=== PATIENT | female | born 1975 | race Two or more races ===

== ENCOUNTER → 2023-09-23 | Outpatient (BNVA) | payer MEDICAID, SELFPAY | END | disposition home or self-care (01) | PROVIDERS: PCP Nurse Practitioner Family; Referring Provider Nurse Practitioner Family; Visit Provider Nurse Practitioner Family | DX: S91.209A Unspecified open wound of unspecified toe(s) with damage to nail, initial encounter (principal); L60.0 Ingrowing nail | CPT/HCPCS: 11730; 99215; J3490 ==

== ENCOUNTER → 2024-02-12 | Outpatient (CLI) | payer MEDICAID, SELFPAY ==
--- NOTE | 2024-02-12 14:00 | ECHO_ITS ---
Transthoracic Echo Report Ht (in): 63 Wt (lb): 184 Exam Location: Echo Lab Status: Preadmit Certified Lactation Educator: Lori Melvin Indications: Procedure Performed: BP: / HR: Rhythm: Sinus Technical Quality: Fair MEASUREMENTS (Male / Female) Normal Values 2D ECHO LV Diastolic Diameter PLAX 4.6 cm 4.2 - 5.9 / 3.9 - 5.3 cm LV Systolic Diameter PLAX 3.3 cm IVS Diastolic Thickness 0.9 cm 0.6 - 1.0 / 0.6 - 0.9 cm LVPW Diastolic Thickness 0.8 cm 0.6 - 1.0 / 0.6 - 0.9 cm LV Relative Wall Thickness 0.4 LVOT Diameter 1.8 cm LA Volume Index 17.2 cm?/m? 16 - 28 cm?/m? Ascending Aorta Diameter 2.8 cm M-MODE Aortic Root Diameter MM 2.8 cm LA Systolic Diameter MM 3.5 cm LA Ao Ratio MM 1.3 AV Cusp Separation MM 1.9 cm DOPPLER AV Peak Velocity 142.0 cm/s AV Peak Gradient 8.1 mmHg AV Mean Gradient 4.0 mmHg AV Velocity Time Integral 28.4 cm LVOT Peak Velocity 109.0 cm/s LVOT Peak Gradient 4.8 mmHg LVOT Velocity Time Integral 22.1 cm AV Area Cont Eq vti 2.0 cm? AV Area Cont Eq pk 2.0 cm? MV Peak Velocity 93.3 cm/s MV Peak Gradient 3.5 mmHg MV Mean Velocity 62.3 cm/s MV Mean Gradient 2.0 mmHg MV Area PHT 4.0 cm? Mitral E Point Velocity 66.0 cm/s Mitral A Point Velocity 83.4 cm/s Mitral E to A Ratio 0.8 LV E' Lateral Velocity 11.4 cm/s Mitral E to LV E' Lateral Ratio 5.8 LV E' Septal Velocity 8.3 cm/s Mitral E to LV E' Septal Ratio 8.0 FINDINGS Left Ventricle Normal left ventricular size, wall thickness, systolic function with no obvious regional wall motion abnormalities. The ejection fraction is visually estimated at 55-60%. Right Ventricle The right ventricle is normal in size and systolic function. Left Atrium The left atrium is normal by two-dimensional, color flow and Doppler imaging with no structural abnormalities, no thrombus formation present. Right Atrium The right atrium is normal by two-dimensional imaging, color flow and Doppler imaging with no struct ural abnormalities, no thrombus formation present. Atrial Septum The interatrial septum appears normal with no evidence of a shunt. Aorta The aorta is normal by two-dimensional, color flow and Doppler interrogation. Mitral Valve The mitral valve is normal by two-dimensional, color flow and Doppler interrogation. There is trace mitral valve regurgitation. Aortic Valve The aortic valve is trileaflet and normal by two-dimensional, color flow and Doppler interrogation. There is trace aortic valve regurgitation. Tricuspid Valve The tricuspid valve is normal by two-dimensional, color flow and Doppler interrogation. There is tra ce tricuspid valve regurgitation. Pulmonic Valve There is no significant pulmonic valve regurgitation. Vessels The pulmonary artery appears normal. The inferior vena cava pulmonary and hepatic veins appear dahiana l. Pericardium The pericardium is normal by two-dimensional imaging. There is no significant pericardial effusion. CONCLUSIONS Normal LV size and function. Estimated EF 55-60% Normal RV size and function. Trace mitral and trace tricuspid regurgitation Rayne Ross (Electronically Signed) Final Date: 12 February 2024 20:24
== END | disposition home or self-care (01) ==
LOC: SDIM 14:08
PROVIDERS: PCP Nurse Practitioner Family; Referring Provider Internal Medicine Hematology & Oncology; Visit Provider Internal Medicine Hematology & Oncology
DX: I08.1 Rheumatic disorders of both mitral and tricuspid valves (principal); C50.011 Malignant neoplasm of nipple and areola, right female breast
CPT/HCPCS: 93306

== ENCOUNTER 2024-05-19 12:55 | Outpatient (RCR) | payer MEDICAID, SELFPAY ==
[2024-05-18 15:49] LABS: Basophils # (Auto) 0.1 Thou/mm3 (0.0-0.2); Basophils % (Auto) 1 % (0-2.5); Eosinophils # (Auto) 0.1 Thou/mm3 (0.0-0.5); Eosinophils % (Auto) 2 % (0-10); Hematocrit 37.1 % (36.0-46.0); Hemoglobin 13.4 g/dL (12.0-16.0); Immature Granulocytes % (Auto) 0 % (0-0); Immature Granulocytes Auto 0.02 Thou/mm3 (0.00-0.00); Lymphocytes # (Auto) 1.2 Thou/mm3 (1.0-4.8); Lymphocytes % (Auto) 21 % (10-50); Mean Corpuscular HGB Conc 36.1 g/dl (31.0-37.0); Mean Corpuscular Hemoglobin 32.1 pg (25.0-35.0); Mean Corpuscular Volume 89 fL (80-100); Monocytes # (Auto) 0.4 Thou/mm3 (0.0-0.8); Monocytes % (Auto) 7 % (0-12); Neutrophils # (Auto) 4.1 Thou/mm3 (1.8-7.7); Neutrophils % (Auto) 69 % (37-80); Nucleated Red Blood Cell % 0 /100 WBC (0); Platelet Count 241 Thou/mm3 (140-440); RDW Standard Deviation 39.2 fL (36.4-46.3); Red Blood Count 4.18 Miln/mm3 (4.00-5.20); White Blood Count 5.9 Thou/mm3 (3.6-11.0)
[2024-05-18 16:10] LABS: Alanine Aminotransferase 258 U/L (10-49); Albumin, Serum 4.1 gm/dL (3.5-5.0); Albumin/Globulin Ratio 1.5 (1.2-2.2); Alkaline Phosphatase 89 U/L (46-116); Anion Gap 5 (7-16); Aspartate Amino Transferase 180 U/L (0-34); BUN/Creatinine Ratio 17 Ratio (12-20); Bilirubin,Total 1.1 mg/dL (0.3-1.2); Blood Urea Nitrogen 12 mg/dL (9-23); Calcium 9.6 mg/dL (8.3-10.6); Calcium (Corrected) 9.6 mg/dL (8.5-10.1); Carbon Dioxide 27.6 mMol/L (20.0-31.0); Chloride 106 mMol/L (98-107); Creatinine (Component) 0.7 mg/dL (0.6-1.3); Globulin 2.8 gm/dL (2.3-3.5); Glucose 129 mg/dL (74-106); Osmolality,Calculated 279 (275-295); Potassium 3.6 mMol/L (3.4-5.1); Sodium 139 mMol/L (136-145); Total Protein 6.9 gm/dL (5.7-8.2); eGFR > 60 See Note
--- NOTE | 2024-05-20 00:51 | CTCFLWUP_ITS ---
Patient: DOMINGA GARCIA : 1975 Page 8 of 8 FOLLOW UP NOTE DATE OF SERVICE: 05/19/2024 NAME: DOMINGA GRACIA ACCOUNT: [id number] : 1975 AGE: 48 INTERVAL HISTORY: Alesha, a patient with a history of cancer, presents with elevated liver enzymes and multiple pain complaints. The patient reports strong pain under the left ribs, bone pain, and pain near the ovary. The patient denies any recent medication changes or alcohol use. The patient describes the pain as being primarily on the left side, with bone pain all over, mostly in the joints. The patient does not report any burning sensation when urinating. The pain's onset, duration, and severity are not specified. The patient mentions that the bone pain could be from the cancer pill they are taking. The patient's liver enzymes have been elevated since November 2023, with a significant increase noted during this visit. The patient denies starting any new supplements or vitamins, stating they are only taking their cancer pill. The patient reports weight gain but does not specify the amount or timeframe. Regarding treatment adherence, the patient continues to take their prescribed cancer medication and hormone-blocking medicine. They inquire about refilling their cancer pill prescription at the pharmacy. Medical History - Cancer (unspecified type) - Diabetes - Elevated liver enzymes since November 2023 Medications and Supplements - Cancer pill (hormone-blocking medicine) - Possibly causing bone pain, mostly in the joints - Tylenol - Advised to avoid - Aleve - Advised to avoid Social History - Substance Use: Denies alcohol use - Diet: Patient reports weight gain Review of Systems General: Positive for weight gain. Gastrointestinal: Positive for left-sided pain under ribs. Genitourinary: Negative for burning sensation when urinating. Musculoskeletal: Positive for bone pain, joint pain. Other: Positive for pain near ovary. 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 S/p ultrasound-guided biopsy of the right breast lesion (01/16/2022) S/p 6 cycles of neoadjuvant TCH chemotherapy since 03/21/2022 - 07/11/2022). S/p lumpectomy and sentinel lymph node biopsy (09/20/2022). Patient had complete pathological response BRCA 1and2 negative. Started on adjuvant tamoxifen on 10/21/2022 Completed a total of 1 year of adjuvant Herceptin on 08/07/2023 last menstrual cycle March 2022. REASON FOR TODAY?S VISIT: This is office follow-up visit. Ms. Garcia is here at [facility]. She complains of new onset pain in the lower part of the right breast for last few weeks. She denies any nipple discharge. Denies any other complaints. Denies any cough, chest pain, abdominal pain or leg cramps. Patient states that she is having memory problems. She completed a total of 1 year of Herceptin on 08/07/2023. Malignant neoplasm of nipple and areola, right female breast [ICD10] C50.011 DATE OF DIAGNOSIS: STAGE/TNM: TREATMENT HISTORY: Care?Plan Start?Date Cycle Day Intent TCH?1 02/03/2022 1 21 Curative?(primary) VENOfer?200mg?IV?wkly?for?10?weeks 03/25/2022 1 70 Palliative Trastuzumab?6?mg/kg? To?Finish?the?Year 11/11/2022 1 21 Curative?(adjuvant) Trastuzumab?6?mg/kg? To?Finish?the?Year 02/17/2023 1 21 Curative?(adjuvant) HISTORY OF PRESENT ILLNESS: Dominga Garcia is a 48-year-old SPA speaking female without any significant past medical history has the following oncology history. September 2021: Ms. Garcia started feeling a lump in the right breast as well as in the right breast. 11/14/2021: Right breast diagnostic mammogram and ultrasound? 01/16/2022: Ultrasound-guided right breast biopsy? 02/18/2022: BRCA1 and BRCA2 analysis?negative 02/27/2022: MRI of the brain with and without contrast? 04/09/2022: PET/CT scan? 03/21/2022?07/11/2022: Patient was treated with 6 cycles of neoadjuvant TCH chemotherapy. 08/28/2022: MRI of the breast? 09/20/2022: Ms. Garcia had right breast lumpectomy and sentinel lymph node biopsy. 11/13/2022 - 01/07/2023: Ms. Garcia had 6300 cGy radiation therapy to the right breast, regional node sites including right supra clavicle as well as right apex region of the lung. 01/29/2023: Echocardiogram?LVEF 55-60%. 02/05/2023: CT scan of the chest and abdomen with IV contrast? OTHER MEDICAL HISTORY/CONDITIONS: Right?breast?cancer?-?2021 Cholecystectomy - 13 yrs ago Tubal ligation - 13 yrs ago FAMILY HISTORY: Cancer History:?Mat cousins x 2 - breast - dx age 34 and 52 SOCIAL HISTORY: Occupational?History:?[employer] Education?Level:?Completed High School Marital?Status:? Tobacco?Use:?Denies ETOH?Use:?Denies Drug?Note:?Denies Social History Note:?Lives with children [employer] HISTORY: Menarche?-?Age:?14 Date?LMP:?01/17/2022 :?4 Live?Births:?4 Age?1st?:?18 MEDICATIONS: 1. anastrozole - 1 mg 1 tab Daily 2. Arimidex - 1 mg 1 tab Daily Medications Last Reconciled by Zenobia Duggan MA on 05/19/2024 ALLERGIES: No Known Drug Allergies REVIEW OF SYSTEMS: A complete 14-point review of systems was performed and is negative except as noted in interval history. PHYSICAL EXAMINATION: VITAL SIGNS: Temperature?98.4, B/P?129/82, Oxygen?Saturation?97% Weight?196?lbs (Change?since?05/18/24:?3.4?lbs) PAIN: 2 - Mild pain ECOG Performance Status: 0 - Asymptomatic and fully active EYE: Conjunctivae is white MOUTH: Oral cavity is dry. No masses palpable in the right breast CHEST: Clear to auscultation. No wheezes or rales audible. No masses palpable CARDIAC: Rhythm regular, no murmurs or gallops present. ABDOMEN: Soft. No hepatomegaly. No splenomegaly. EXTREMITIES: No pedal edema or cyanosis. Physical Examination Abdomen: Pain noted under the left ribs. No hepatomegaly appreciated on palpation. Musculoskeletal: Pain reported in bones and joints. Laboratory, Imaging, and Diagnostic Test Results - Liver enzymes: - Elevated since November 2023 - Current results: Significantly higher than previous - Last imaging scan (November 2023): Negative LABORATORY DATA: I have personally reviewed and interpreted each of the patient?s relevant lab tests, abnormal findings are below: Date 11/11/23 05/18/24 ??WHITE?BLOOD?COUNT?(Thou/mm3) 5.1 5.9 ??RED?BLOOD?COUNT?(Miln/mm3) 3.74?L 4.18 ??HEMOGLOBIN?(gm/dl) 11.9?L 13.4 ??HEMATOCRIT?(%) 33.9?L 37.1 ??PLATELET?COUNT?(Thou/mm3) 222 241 ??NEUTROPHILS?%,?AUTO?(%) 65 69 ??LYMPH?%,?AUTO?(%) 25 21 ??NEUTROPHILS,?AUTO?(Thou/mm3) 3.3 4.1 ??GLUCOSE,RANDOM?(mg/dL) 110?H 129?H ??BLOOD?UREA?NITROGEN?(mg/dL) 17 12 ??CREATININE?(mg/dL) 0.70 0.70 ??SODIUM?(mmol/L) 141 139 ??POTASSIUM?(mmol/L) 3.7 3.6 ??CHLORIDE?(mmol/L) 108?H 106 ??CrCl?(CandG)?(ml/min) 105.77 108.47 ??AST/SGOT?(Unit/L) 55?H 180?H ??ALT/SGPT?(Unit/L) 64?H 258?H ??ALKALINE?PHOSPHATASE?(Unit/L) 94 89 ??BILIRUBIN,?TOTAL?(mg/dL) 0.5 1.1 ??PROTEIN?TOTAL?(gm/dl) 6.8 6.9 ??ALBUMIN,?SERUM?(gm/dl) 4.3 4.1 ??GLOBULIN?(gm/dl) 2.5 2.8 ??ALBUMIN/GLOBULIN?RATIO 1.7 1.5 ??CALCIUM,?SERUM?(mg/dL) 9.7 9.6 ??CALCIUM?SERUM?(CORRECTED)?(mg/dL) 9.7 9.6 ASSESSMENT/PLAN: Alesha presents with elevated liver enzymes, pain under left ribs, bone pain, and pain near ovary. Patient has a history of cancer and is on hormone- blocking medication. Elevated liver enzymes Assessment: Patient's liver enzymes have been elevated since November 2023, with a significant increase noted today. Alcohol consumption and recent medication changes have been ruled out. Potential causes include hyperglycemia, hepatic steatosis, or mild infection. Cancer recurrence is also a consideration. Further investigation is warranted to determine the etiology. Plan: - Repeat comprehensive metabolic panel - Order CT scan of chest, abdomen, and pelvis with contrast - Order minimal residual disease testing via blood - Order hepatitis panel - Discontinue all vitamins and supplements for 1-2 weeks, then repeat blood work - Continue cancer medication (hormone-blocking therapy) - Avoid acetaminophen and naproxen - Follow up in 4 weeks Left-sided rib pain, bone pain, and ovarian pain Assessment: Patient reports pain under the left ribs, generalized bone pain (predominantly in joints), and pain near the ovary. The bone pain may be a side effect of the cancer medication. The left-sided rib pain is less concerning for hepatic involvement given the liver's anatomical location. Ovarian pain requires further evaluation. Plan: - CT scan of chest, abdomen, and pelvis with contrast (as mentioned above) - Check tumor markers - Increase fluid intake - Continue hormone-blocking medication - Follow up in 4 weeks Weight gain Assessment: Patient reports significant weight gain, which may contribute to hepatic steatosis and elevated liver enzymes. Plan: - Recommend weight loss - Encourage increased water intake Diabetes management Assessment: Patient has a history of diabetes, which may be contributing to elevated liver enzymes. Current glycemic control is unknown. Plan: - Check diabetes-related laboratory values (likely HbA1c and fasting glucose) ORDERS: Order # Description [id number] CA [id number] [id number] Chest + Abdomen and Pelvis + With W/O Contrast + CT Scan [id number] Comprehensive Metabolic Panel - 12 + CBC with Auto Diff [id number] Hep A, B and C panel [id number] MD Follow Up 4 Week [id number] AFP RETURN TO CLINIC: 4 weeks instructions Dear Alesha, Thank you for visiting today. 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 Best Regards, deena bullock, Oncology BILLING AND COMPLIANCE: I reviewed external records from providers outside my specialty as summarized above. I spent a total of 50 minutes on this patient?s care on the day of their visit excluding time spent related to any billed procedures. This time includes time spent with the patient as well as time spent documenting in the medical record, reviewing patients records and tests, obtaining history, placing orders, communicating with other healthcare professionals, counseling the patient, family or caregiver, and/or care coordination for the diagnoses above. Electronically Signed by: {Object.Sanct_ID*[email or web address]@M}, {Object.Sanct_ID*[email or web address]@U} D: {Object.Sanct_Date} T: {Object.Sanct_Time} CC: PCP: [facility] Mellisa Mcclendon Referring: [facility] Mellisa Mcclendon This document was completed utilizing speech recognition software. Grammatical errors, random word insertions, pronoun errors, and incomplete sentences are an occasional consequence of this system due to software limitations, ambient noise, and hardware issues. Any formal questions or concerns about the content, text or information contained within the body of this dictation should be directly addressed to the provider for clarification.
== END 2024-06-09 23:59 | disposition home or self-care (01) ==
LOC: SCTC 12:55
PROVIDERS: PCP Nurse Practitioner Family; Referring Provider Nurse Practitioner Family; Visit Provider Internal Medicine Hematology & Oncology
DX: C50.511 Malignant neoplasm of lower-outer quadrant of right female breast (principal); Z17.0 Estrogen receptor positive status [ER+]; Z17.22 Progesterone receptor negative status; Z17.32 Human epidermal growth factor receptor 2 negative status; Z79.811 Long term (current) use of aromatase inhibitors; R74.8 Abnormal levels of other serum enzymes; R07.81 Pleurodynia; M89.8X9 Other specified disorders of bone, unspecified site; N94.89 Other specified conditions associated with female genital organs and menstrual cycle; R63.5 Abnormal weight gain; Z68.33 Body mass index [BMI] 33.0-33.9, adult; E11.9 Type 2 diabetes mellitus without complications; Z90.11 Acquired absence of right breast and nipple
CPT/HCPCS: 36415; 80053; 85025; 99213; G0463

== ENCOUNTER → 2024-05-21 | Outpatient (CLI) | payer MEDICAID, SELFPAY ==
--- NOTE | 2024-05-21 14:00 | ECHO_ITS ---
Transthoracic Echo Report Ht (in): 63 Wt (lb): 196 Exam Location: Echo Lab Status: Preadmit Cue Selector: GLADIS Foley^^^^ Indications: Procedure Performed: BP: 128 / 74 HR: 77 Technical Quality: Fair MEASUREMENTS (Male / Female) Normal Values 2D ECHO LV Diastolic Diameter PLAX 4.9 cm 4.2 - 5.9 / 3.9 - 5.3 cm LV Systolic Diameter PLAX 2.8 cm IVS Diastolic Thickness 0.6 cm 0.6 - 1.0 / 0.6 - 0.9 cm LVPW Diastolic Thickness 0.7 cm 0.6 - 1.0 / 0.6 - 0.9 cm LV Relative Wall Thickness 0.3 LVOT Diameter 1.5 cm Aortic Root Diameter 2.9 cm LA Systolic Diameter LX 2.6 cm 3.0 - 4.0 / 2.7 - 3.8 cm LA Volume Index 18.8 cm?/m? 16 - 28 cm?/m? Ascending Aorta Diameter 2.4 cm DOPPLER AV Peak Velocity 152.0 cm/s AV Peak Gradient 9.2 mmHg AV Mean Gradient 6.0 mmHg AV Velocity Time Integral 34.7 cm LVOT Peak Velocity 127.0 cm/s LVOT Peak Gradient 6.5 mmHg LVOT Velocity Time Integral 27.3 cm LVOT Cardiac Index 1832.7 cm?/min?m? AV Area Cont Eq vti 1.4 cm? AV Area Cont Eq pk 1.5 cm? MV Area PHT 4.5 cm? Mitral E Point Velocity 86.6 cm/s Mitral A Point Velocity 79.7 cm/s Mitral E to A Ratio 1.1 LV E' Lateral Velocity 9.4 cm/s Mitral E to LV E' Lateral Ratio 9.2 LV E' Septal Velocity 10.8 cm/s Mitral E to LV E' Septal Ratio 8.0 TR Peak Velocity 202.0 cm/s TR Peak Gradient 16.3 mmHg PV Peak Velocity 122.0 cm/s PV Peak Gradient 6.0 mmHg RVOT Peak Velocity 90.2 cm/s FINDINGS Left Ventricle Normal left ventricular size, wall thickness, systolic function with no obvious regional wall motion abnormalities. Normal left ventricular diastolic filling pattern for age. The ejection fraction is visually estimated at 60-65 %. Right Ventricle The right ventricle is normal in size and systolic function. The estimated right ventricular systolic pressure, 18 mmHg. Left Atrium The left atrium is normal by two-dimensional, color flow and Doppler imaging with no structural abnormalities, no thrombus formation present. Right Atrium The right atrium is normal by two-dimensional imaging, color flow and Doppler imaging with no structural abnormalities, no thrombus formation present. Atrial Septum The interatrial septum appears normal with no evidence of a shunt. Aorta The aorta is normal by two-dimensional, color flow and Doppler interrogation. Mitral Valve Trace to mild mitral regurgitation. Aortic Valve The aortic valve is trileaflet and normal by two-dimensional, color flow and Doppler interrogation. There is no significant aortic valve regurgitation. Tricuspid Valve There is mild tricuspid valve regurgitation. Pulmonic Valve Trivial pulmonic valve regurgitation. Vessels The pulmonary artery appears normal. The inferior vena cava pulmonary and hepatic veins appear normal. Pericardium The pericardium is normal by two-dimensional imaging. There is no significant pericardial effusion. CONCLUSIONS indication: Cancer Normal-sized cardiac chambers Normal-sized left ventricle with excellent LV systolic function ejection fraction 65 to 70% Trace to mild tricuspid mitral regurgitation insignificant. Rayne Ross (Electronically Signed) Final Date: 21 May 2024 16:59
== END | disposition home or self-care (01) ==
LOC: SDIM 13:54
PROVIDERS: PCP Nurse Practitioner Family; Referring Provider Internal Medicine Hematology & Oncology; Visit Provider Internal Medicine Hematology & Oncology
DX: I08.1 Rheumatic disorders of both mitral and tricuspid valves (principal); C50.011 Malignant neoplasm of nipple and areola, right female breast
CPT/HCPCS: 93306

== ENCOUNTER → 2024-06-03 | Outpatient (BNVA) | payer MEDICAID, SELFPAY | END | disposition home or self-care (01) | PROVIDERS: PCP Nurse Practitioner Family; Referring Provider Nurse Practitioner Family; Visit Provider Nurse Practitioner Family | DX: F32.1 Major depressive disorder, single episode, moderate (principal); F41.9 Anxiety disorder, unspecified; Z12.4 Encounter for screening for malignant neoplasm of cervix; R10.2 Pelvic and perineal pain | CPT/HCPCS: 99215; Q0091 ==

== ENCOUNTER → 2024-06-17 | Outpatient (BNVA) | payer MEDICAID, SELFPAY | END | disposition home or self-care (01) | PROVIDERS: PCP Nurse Practitioner Family; Referring Provider Nurse Practitioner Family; Visit Provider Nurse Practitioner Family | DX: R87.810 Cervical high risk human papillomavirus (HPV) DNA test positive (principal) | CPT/HCPCS: 99214 ==

== ENCOUNTER 2024-06-22 10:34 | Outpatient (RCR) | payer MEDICAID, SELFPAY ==
[2024-06-16 09:19] LABS: Basophils % (Auto) 1 % (0-2.5); Eosinophils # (Auto) 0.2 Thou/mm3 (0.0-0.5); Eosinophils % (Auto) 4 % (0-10); Hematocrit 35.5 % (36.0-46.0); Hemoglobin 12.7 g/dL (12.0-16.0); Immature Granulocytes % (Auto) 0 % (0-0); Immature Granulocytes Auto 0.01 Thou/mm3 (0.00-0.00); Lymphocytes # (Auto) 1.3 Thou/mm3 (1.0-4.8); Lymphocytes % (Auto) 29 % (10-50); Mean Corpuscular HGB Conc 35.8 g/dl (31.0-37.0); Mean Corpuscular Hemoglobin 32.1 pg (25.0-35.0); Mean Corpuscular Volume 90 fL (80-100); Monocytes # (Auto) 0.3 Thou/mm3 (0.0-0.8); Monocytes % (Auto) 7 % (0-12); Neutrophils # (Auto) 2.5 Thou/mm3 (1.8-7.7); Neutrophils % (Auto) 59 % (37-80); Nucleated Red Blood Cell % 0 /100 WBC (0); Platelet Count 249 Thou/mm3 (140-440); Red Blood Count 3.96 Miln/mm3 (4.00-5.20); White Blood Count 4.3 Thou/mm3 (3.6-11.0)
[2024-06-16 09:41] LABS: Alanine Aminotransferase 193 U/L (10-49); Albumin, Serum 4.2 gm/dL (3.5-5.0); Albumin/Globulin Ratio 1.7 (1.2-2.2); Alkaline Phosphatase 94 U/L (46-116); Anion Gap 8 (7-16); Aspartate Amino Transferase 126 U/L (0-34); BUN/Creatinine Ratio 23 Ratio (12-20); Blood Urea Nitrogen 14 mg/dL (9-23); Calcium 8.9 mg/dL (8.3-10.6); Calcium (Corrected) 8.9 mg/dL (8.5-10.1); Chloride 106 mMol/L (98-107); Creatinine (Component) 0.6 mg/dL (0.6-1.3); Globulin 2.5 gm/dL (2.3-3.5); Glucose 120 mg/dL (74-106); Osmolality,Calculated 280 (275-295); Potassium 3.9 mMol/L (3.4-5.1); Sodium 140 mMol/L (136-145); Total Protein 6.7 gm/dL (5.7-8.2); eGFR > 60 See Note
[2024-06-16 09:57] LABS: CA 15-3 14.8 U/mL (<32.4); Carcinoembryonic Antigen 1.5 ng/mL (0.0-5.0)
[2024-06-16 10:31] LABS: Hepatitis A Antibody IgM Non Reactive (Non React); Hepatitis B Core Antibody IgM Non Reactive (Non React); Hepatitis B Surface Antigen Non Reactive (Non React); Hepatitis C Antibody Non Reactive (Non React)
--- NOTE | 2024-06-22 11:58 | CTCFLWUP_ITS ---
Patient: DOMINGA GARCIA : 1975 Page 2 of 2 FOLLOW UP NOTE DATE OF SERVICE: 06/22/2024 NAME: DOMINGA GARCIA ACCOUNT: [id number] : 1975 AGE: 48 INTERVAL HISTORY: Subjective: Chief Complaint Follow-up for abnormal liver enzymes, review of CT scan results History of Present Illness Jaya Galicia is a patient with a history of cancer who presents for follow-up of abnormal liver enzymes and medication management. The patient's liver enzymes have been elevated for an extended period, with recent improvement noted since discontinuing hormone-blocking medication. The patient was previously taking tamoxifen for cancer treatment, which was later changed to anastrozole. Last month, the patient stopped taking anastrozole due to concerns about its potential impact on liver function. Since discontinuing the medication, the patient's liver function tests (LFTs) have s hown improvement. The patient has also experienced weight gain, which may be contributing to fatty liver disease and further impacting liver enzyme levels. The patient reports no specific symptoms related to liver dysfunction or other health concerns during this visit. Adherence to the recommendation to discontinue the hormone-blocking medication has been maintained since the last visit. Medications and Supplements - Tamoxifen - Discontinued. Was prescribed for cancer. - Anastrozole - Started after tamoxifen. - Discontinued last month due to elevated liver enzymes. - Ibuprofen - Taken occasionally. - Tylenol - Advised to avoid due to potential liver damage. Review of Systems General: Positive for weight gain. Objective: Laboratory, Imaging, and Diagnostic Test Results - CBC: Hemoglobin normal, red cells normal - Liver enzymes: Elevated, trending down since last visit - Blood sugar: Slightly elevated - Echocardiogram: Mild abnormality noted, normal functioning Review of Systems General: Positive for weight gain. Gastrointestinal: Positive for left-sided pain under ribs. Genitourinary: Negative for burning sensation when urinating. Musculoskeletal: Positive for bone pain, joint pain. Other: Positive for pain near ovary. ONCOLOGY HISTORY:?[facility] Oncology Hx? 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 S/p ultrasound-guided biopsy of the right breast lesion (01/16/2022) S/p 6 cycles of neoadjuvant TCH chemotherapy since 03/21/2022 - 07/11/2022). S/p lumpectomy and sentinel lymph node biopsy (09/20/2022). Patient had complete pathological response BRCA 1and2 negative. Started on adjuvant tamoxifen on 10/21/2022 Completed a total of 1 year of adjuvant Herceptin on 08/07/2023 last menstrual cycle March 2022. REASON FOR TODAY?S VISIT: This is office follow-up visit. Ms. Garcia is here at [facility]. She complains of new onset pain in the lower part of the right breast for last few weeks. She denies any nipple discharge. Denies any other complaints. Denies any cough, chest pain, abdominal pain or leg cramps. Patient states that she is having memory problems. She completed a total of 1 year of Herceptin on 08/07/2023. Malignant neoplasm of nipple and areola, right female breast [ICD10] C50.011 DATE OF DIAGNOSIS: STAGE/TNM: TREATMENT HISTORY: Care?Plan Start?Date Cycle Day Intent TCH?1 02/03/2022 1 21 Curative?(primary) VENOfer?200mg?IV?wkly?for?10?weeks 03/25/2022 1 70 Palliative Trastuzumab?6?mg/kg? To?Finish?the?Year 11/11/2022 1 21 Curative?(adjuvant) Trastuzumab?6?mg/kg? To?Finish?the?Year 02/17/2023 1 21 Curative?(adjuvant) HISTORY OF PRESENT ILLNESS: Dominga Garcia is a 48-year-old SPA speaking female without any significant past medical history has the following oncology history. September 2021: Ms. Garcia started feeling a lump in the right breast as well as in the right breast. 11/14/2021: Right breast diagnostic mammogram and ultrasound? 01/16/2022: Ultrasound-guided right breast biopsy? 02/18/2022: BRCA1 and BRCA2 analysis?negative 02/27/2022: MRI of the brain with and without contrast? 04/09/2022: PET/CT scan? 03/21/2022?07/11/2022: Patient was treated with 6 cycles of neoadjuvant TCH chemotherapy. 08/28/2022: MRI of the breast? 09/20/2022: Ms. Garcia had right breast lumpectomy and sentinel lymph node biopsy. 11/13/2022 - 01/07/2023: Ms. Garcia had 6300 cGy radiation therapy to the right breast, regional node sites including right supra clavicle as well as right apex region of the lung. 01/29/2023: Echocardiogram?LVEF 55-60%. 02/05/2023: CT scan of the chest and abdomen with IV contrast? OTHER MEDICAL HISTORY/CONDITIONS: Right?breast?cancer?-?2021 Cholecystectomy - 13 yrs ago Tubal ligation - 13 yrs ago FAMILY HISTORY: Cancer History:?Mat cousins x 2 - breast - dx age 34 and 52 SOCIAL HISTORY: Occupational?History:?[employer] Education?Level:?Completed High School Marital?Status:? Tobacco?Use:?Denies ETOH?Use:?Denies Drug?Note:?Denies Social History Note:?Lives with children MANAGER CAR HISTORY: Menarche?-?Age:?14 Date?LMP:?01/17/2022 :?4 Live?Births:?4 Age?1st?:?18 MEDICATIONS: 1. Arimidex - 1 mg 1 tab Daily?Palabra Meds? Medications Last Reconciled by Tanisha Raya MA on 06/22/2024 ALLERGIES: No Known Drug Allergies REVIEW OF SYSTEMS: A complete 14-point review of systems was performed and is negative except as noted in interval history. PHYSICAL EXAMINATION:?[facility] PE? VITAL SIGNS: Temperature?97, B/P?120/82, Oxygen?Saturation?97% Weight?194?lbs (Change?since?06/16/24:?-5.2?lbs) PAIN: 0 - No pain ECOG Performance Status: 1 - Symptomatic; ambulatory; restricted in strenuous activity EYE: Conjunctivae is white MOUTH: Oral cavity is dry. No masses palpable in the right breast CHEST: Clear to auscultation. No wheezes or rales audible. No masses palpable CARDIAC: Rhythm regular, no murmurs or gallops present. ABDOMEN: Soft. No hepatomegaly. No splenomegaly. EXTREMITIES: No pedal edema or cyanosis. Physical Examination Abdomen: Pain noted under the left ribs. No hepatomegaly appreciated on palpation. Musculoskeletal: Pain reported in bones and joints. Laboratory, Imaging, and Diagnostic Test Results - Liver enzymes: - Elevated since November 2023 - Current results: Significantly higher than previous - Last imaging scan (November 2023): Negative LABORATORY DATA: I have personally reviewed and interpreted each of the patient?s relevant lab tests, abnormal findings are below: Date 05/18/24 06/16/24 ??WHITE?BLOOD?COUNT?(Thou/mm3) 5.9 4.3 ??RED?BLOOD?COUNT?(Miln/mm3) 4.18 3.96?L ??HEMOGLOBIN?(gm/dl) 13.4 12.7 ??HEMATOCRIT?(%) 37.1 35.5?L ??PLATELET?COUNT?(Thou/mm3) 241 249 ??NEUTROPHILS?%,?AUTO?(%) 69 59 ??LYMPH?%,?AUTO?(%) 21 29 ??NEUTROPHILS,?AUTO?(Thou/mm3) 4.1 2.5 ??GLUCOSE,RANDOM?(mg/dL) ? 120?H ??BLOOD?UREA?NITROGEN?(mg/dL) ? 14 ??CREATININE?(mg/dL) ? 0.60 ??SODIUM?(mmol/L) ? 140 ??POTASSIUM?(mmol/L) ? 3.9 ??CHLORIDE?(mmol/L) ? 106 ??CrCl?(CandG)?(ml/min) ? 128.77 ??AST/SGOT?(Unit/L) ? 126?H ??ALT/SGPT?(Unit/L) ? 193?H ??ALKALINE?PHOSPHATASE?(Unit/L) ? 94 ??BILIRUBIN,?TOTAL?(mg/dL) ? 1.0 ??PROTEIN?TOTAL?(gm/dl) ? 6.7 ??ALBUMIN,?SERUM?(gm/dl) ? 4.2 ??GLOBULIN?(gm/dl) ? 2.5 ??ALBUMIN/GLOBULIN?RATIO ? 1.7 ??CALCIUM,?SERUM?(mg/dL) ? 8.9 ??CALCIUM?SERUM?(CORRECTED)?(mg/dL) ? 8.9 ??CEA?(O*)?(ng/ml) ? 1.5 ASSESSMENT/PLAN:?Haja Henry Assessment/Plan? Assessment and Plan: Beltranico Dominga, a patient with a history of cancer, presents with elevated liver enzymes and blood sugar, and mild cardiac abnormalities. Elevated liver enzymes Assessment: Patient's liver enzymes have been elevated for an extended period but have shown recent improvement after discontinuing hormone-blocking medication. The cause of the elevation is unclear but may be related to the recently discontinued anastrozole, previously used tamoxifen, or fatty liver d isease due to weight gain. A CT scan is pending to further evaluate the liver. There is concern for potential liver failure, necessitating close monitoring. Plan: - Continue to hold anastrozole until CT scan results are available and liver enzymes normalize - Await results of scheduled CT scan on the of this month - Repeat liver function tests in 4 weeks - Follow-up appointment scheduled in [address] scan results and repeat blood work - Advised patient to avoid acetaminophen and limit ibuprofen use - Recommended dietary changes to address weight gain and potential fatty liver - Suggested patient ask primary care physician (Dr. Kamala Goodwin) about prescribing Ozempic for weight management Elevated blood sugar Assessment: Patient's blood work reveals elevated blood sugar levels. This finding, combined with the patient's weight gain, suggests potential metabolic issues. Plan: - Monitor blood sugar levels with repeat blood work in 4 weeks - Encouraged dietary modifications and weight loss Mild cardiac abnormality Assessment: Echocardiogram shows a mild cardiac problem, but overall heart function is normal. The specific nature of the abnormality is not detailed in the transcript. Plan: - No specific interventions mentioned for cardiac issues at this time - Continue to monitor cardiac function as part of overall health management History of cancer Assessment: Patient has a history of cancer, previously treated with tamoxifen and more recently with anastrozole. The hormone-blocking therapy (anastrozole) was discontinued last month due to concerns about liver enzyme elevation. Plan: - Continue to hold anastrozole - Reassess cancer treatment options after liver enzyme normalization and CT scan results - Follow-up in 4 weeks to discuss potential restart of cancer medication Diabetes management Assessment: Patient has a history of diabetes, which may be contributing to elevated liver enzymes. Current glycemic control is unknown. Plan: - Check diabetes-related laboratory values (likely HbA1c and fasting glucose) ORDERS: Order # Description [id number] Comprehensive Metabolic Panel - 12 + CBC with Auto Diff + CA 15-3 [id number] MD Follow Up 4 Week RETURN TO CLINIC: 4 weeks BILLING AND COMPLIANCE: I reviewed external records from providers outside my specialty as summarized above. I spent a total of 50 minutes on this patient?s care on the day of their visit excluding time spent related to any billed procedures. This time includes time spent with the patient as well as time spent documenting in the medical record, reviewing patients records and tests, obtaining history, placing orders, communicating with other healthcare professionals, counseling the patient, family or caregiver, and/or care coordination for the diagnoses above. Electronically Signed by: Nirav Henry MD T: 11:56 AM CC: PCP: [facility] Mellisa Mcclendon Referring: [facility] Mellisa Mcclendon This document was completed utilizing speech recognition software. Grammatical errors, random word insertions, pronoun errors, and incomplete sentences are an occasional consequence of this system due to software limitations, ambient noise, and hardware issues. Any formal questions or concerns about the content, text or information contained within the body of this dictation should be directly addressed to the provider for clarification.
== END 2024-07-10 23:59 | disposition home or self-care (01) ==
LOC: SCTC 10:34
PROVIDERS: PCP Nurse Practitioner Family; Referring Provider Nurse Practitioner Family; Visit Provider Internal Medicine Hematology & Oncology
DX: C50.011 Malignant neoplasm of nipple and areola, right female breast (principal); R74.8 Abnormal levels of other serum enzymes; E11.65 Type 2 diabetes mellitus with hyperglycemia; Z17.0 Estrogen receptor positive status [ER+]; Z17.22 Progesterone receptor negative status; Z17.32 Human epidermal growth factor receptor 2 negative status; Z92.21 Personal history of antineoplastic chemotherapy; Z79.811 Long term (current) use of aromatase inhibitors
CPT/HCPCS: 36415; 80053; 80074; 82105; 82378; 85025; 86300; 99212; G0463

== ENCOUNTER → 2024-06-28 | Outpatient (CLI) | payer MEDICAID, SELFPAY ==
--- NOTE | 2024-06-28 15:00 | XR_ITS ---
Examination: CT chest with intravenous contrast CT abdomen with intravenous contrast CT pelvis with intravenous contrast CT chest without intravenous contrast CT abdomen without contrast 2-D coronal and sagittal reconstructions INDICATIONS: Diagnosis malignant neoplasm nipple and areola right female breast, restaging Time of exam: June 28, 2024 1527 hours Comparison PET/CT scan November 13, 2023 CTDI: vol (mGy) : 32.8 DLP: (mGycm): 1653 Technique: Multiple axial images of the chest, abdomen and pelvis with intravenous contrast, 3.0 mm slice thickness. Images obtained post intravenous injection Isovue 370 60 cc. 2-D sagittal and coronal reconstructions. Low dose protocols were performed. One or more of the following dose reduction techniques were used; automated exposure control, adjustment of the mA and/or KV according to patient size, use of iterative reconstruction technique. Findings: No thoracic aortic aneurysmal dilatation No pulmonary artery filling defects No paratracheal tracheobronchial or bronchopulmonary adenopathy No pneumonia, pulmonary edema or pulmonary nodules No breast or chest wall mass No axillary lymphadenopathy No interval liver or splenic lesions Absent gallbladder No pancreatic or adrenal mass No renal or ureteral calculi, no hydronephrosis Aorta normal size No abdominal or pelvic lymphadenopathy Normal appendix Anteverted uterus with no uterine or adnexal mass Contracted urinary bladder Mild osteopenia No interval osseous metastatic disease IMPRESSION: No interval metastatic disease in the chest abdomen or pelvis
== END | disposition home or self-care (01) ==
LOC: CCTX 14:49
PROVIDERS: PCP Nurse Practitioner Family; Referring Provider Internal Medicine Hematology & Oncology; Visit Provider Internal Medicine Hematology & Oncology
DX: C50.011 Malignant neoplasm of nipple and areola, right female breast (principal)
CPT/HCPCS: 71270; 74178; A4649; Q9967

== ENCOUNTER → 2024-07-15 | Outpatient (BNVA) | payer MEDICAID, SELFPAY | END | disposition home or self-care (01) | PROVIDERS: PCP Nurse Practitioner Family; Referring Provider Nurse Practitioner Family; Visit Provider Nurse Practitioner Family | DX: Z71.2 Person consulting for explanation of examination or test findings (principal); Z71.3 Dietary counseling and surveillance; R94.5 Abnormal results of liver function studies; E66.9 Obesity, unspecified; Z68.35 Body mass index [BMI] 35.0-35.9, adult; R73.03 Prediabetes | CPT/HCPCS: 99213 ==

== ENCOUNTER 2024-07-19 13:30 | Outpatient (AMB) | payer MEDICAID, SELFPAY ==
[2024-07-19 14:05] VITALS: BP 120/75; PULSE 74; RESP 18; TEMP 36.2; O2SAT 98; BMI 36.1
--- NOTE | 2024-07-19 14:05 | GYNCLNT_ITS ---
Vital Signs 07/19/24 14:05 Height 1.57 m Height Method Stated Weight 89.131 kg Weight Measurement Method Standing Scale BMI 36.1 BP 120/75 Blood Pressure Source Automatic Cuff Blood Pressure Location Left Upper Arm Position Sitting Respiration 18 Pulse 74 Pulse Source Monitor Temp 97.2 F Temp Source Oral Pulse Oximetry (%) 98 Oxygen Delivery Method Room Air Allergies/Home Meds Allergies & Medications Allergies No Known Allergies Allergy (Verified 07/19/24 14:06) Medication Reconciliation ergocalciferol (vitamin D2) 1,250 mcg (50,000 unit) capsule 50,000 unit PO QWEEK 12 weeks #12 caps 07/15/24 [Rx Confirmed 07/19/24] sertraline 25 mg tablet 25 mg PO QDAY 07/15/24 [History Confirmed 07/19/24] Intake Visit Data Collection New Patient or Established: Established Patient (seen at [facility] within 3 years) Reason for Visit:: REFERRAL Seen by Clinical Staff ONLY (RN/MA): No Overlock Sewing Machine Operator Required: Yes Overlock Sewing Machine Operator's name/title: DOMINGA CHOWDHURY / DENTAL HYGIENIST Do You Feel Safe at Home: Yes Authorities Contacted: N/A PCP or OBGYN visit in last 3 months: Yes Date of Last PCP or OBGYN visit: 07/15/24 Hx Now: No Are you currently on any form of Control: No Last menstrual period: 03/13/21 Pain Present Currently: No Pain Scale Used: Delarosa-Borjas/Numerical Pain scale:: 0 Smoking Status Smoking Status: Never smoker Cook Specialty history [employer] Specialty History Menstrual regularity: irregular Monthly: No How many days does period last: 0 Age at menarche: 14 Menopausal: No Currently sexually active: No If not currently sexually active, have you ever been sexually active: No HOSIERY MATER: Past Medical History Past Medical History: No Hx Neurological Disorders, Yes Hx Breast Cancer, No Hx Cardiac Disorders, Yes Hx Cancer, Yes Hx Blood Disorders, Yes Hx Anemia, No Hx Gastrointestinal Disorders, No Hx Renal Disease, No Hx Diabetes Mellitus Type 1, No Hx Diabetes Mellitus Type 2, Yes Hx Tubal Ligation and No Hx Hysterectomy Questionnaires Covid-19 Vaccine Questionnaire Has patient been vacinated for Covid-19 Have you been vacinated for Covid-19: Yes PHQ-9 PHQ-2 Over the last 2 weeks, how often have you been bothered by any of the following problems? 1. Little interest or pleasure in doing things: not at all 2. Feeling down, depressed, or hopeless: not at all Total score: 0 PHQ-9 3. Trouble falling or staying asleep, or sleeping too much: Not at all 4. Feeling tired or having little energy: Not at all 5. Poor appetite or overeating: Not at all 6. Feeling bad about yourself - or that you are a failure or have let yourself or your family down: Not at all 7. Trouble concentrating on things, such as reading the newspaper or watching television: Not at all 8. Moving or speaking so slowly that other people could have noticed? - Or the opposite - being so fidgety or restless that you have been moving around a lot more than usual: not at all 9. Thoughts that you would be better off or of hurting yourself in some way: Not at all Total score: 0 If you checked off any problems, how difficult have these problems made it for you to do your work, take care of things at home, or get along with other people?: not difficult at all Source: Developed by Drs. Angel Myers, Bridgett Fontanez, Alberto Solis and colleagues, with an educational lizzie from [employer]. Depression screen completed yes Social History Living Situation History Lives With: Children Housing: House Tobacco History Smoking Status: Never smoker Second Hand Smoke Exposure: No Alcohol History Alcohol Intake: Never Substance Use History Substance Use: NEVER Domestic Abuse History Do You Feel Safe at Home: Yes History of Present Illness HPI Narrative Dominga Lincoln, a 50-year-old female with a history of breast cancer, presents on referral for review of positive HPV test results. The patient underwent a pap smear with her PCP for the first time after 15 years, which revealed a positive result for HPV18 high-risk subtype. The patient reports a history of pelvic pain for several years. She is currently undergoing chemotherapy for breast cancer. A previous ultrasound showed a small area of uterine fundal fibroadegeneration without any adnexal masses, although it was a limited study and the right ovary was not visualized. The patient denies any other gynecologic symptoms, including abnormal bleeding, discharge, dysuria, hematuria, or urinary urgency. She is currently not sexually active and has had only one partner for over 20 years. The patient's recent pap smear, performed on June 03, 2024, was negative for intraepithelial lesion or malignancy. However, the HPV18 high-risk subtype was positive, placing her in an intermediate risk category with approximately 4.5% risk for CIN3+, according to ASCCP guidelines. Medical history includes breast cancer, currently undergoing chemotherapy, and pelvic pain for several years. Surgical history includes breast cancer treatment, including chemotherapy. The patient is currently on chemotherapy for breast cancer treatment. ROS: Genitourinary: Positive for pelvic pain. Negative for abnormal bleeding, discharge, dysuria, hematuria, urinary urgency. Exam General General Appearance: alert, in no apparent distress and healthy appearing Head Head exam: atraumatic Neck Neck exam: Present normal inspection and trachea midline Chest Chest inspection: Present normal inspection and symmetric chest wall rise External exam: Present normal external exam; Absent tenderness Neuro Neurological exam: Present oriented X3 Psych Psychiatric exam: Present normal affect and normal mood Office Procedures OB Clinic LOC & Office Proc's Nursing/Assessment Patient Status: Established Patient OB Clinic Nursing Assessment: Medication Reconciliation, Update PMH in EMR and Vital Signs OB Clinic Coordination of Care: Education Complex Pt/Fam, Consent,records obtained, informed consent, Education Simp Pt/Fam, Lab and Imaging orders, Results/Orders obtained and Staff clarify orders Established Patient Charge Established Patient Point Assignment: 100 Established Patient Point Charge: EP Level 3 (80-115) Assessment & Plan Diagnosis / Problem List (1) Human papillomavirus (HPV) type 18 DNA detected in cervical specimen: Status: Acute Plan Positive HPV18 (high-risk subtype): - Recent pap smear (06/03/2024) negative for intraepithelial lesion or malignancy. - Positive for HPV18 high-risk subtype. - Categorized as intermediate risk, approximately 4.5% risk for CIN3+. - 15-year absence from gynecological screening. - History of chemotherapy for breast cancer, potentially suppressing immunity. - Patient denies abnormal bleeding, discharge, dysuria, hematuria, or urinary urgency. - Reports pelvic pain for several years. - Previous ultrasound showed small area of uterine fundal fibroadegeneration without adnexal masses. Plan: - Perform LEEP (Loop Electrosurgical Excision Procedure) in hospital setting under anesthesia - Process insurance for LEEP procedure - Schedule pre-operative appointment - Review procedure details and show illustrative pictures to patient - Reassure patient about slow progression of condition Surgical Counseling Benefits of LEEP: Removes affected tissue, reduces risk of cervical cancer progression. Risks of LEEP: Standard surgical risks (not specifically discussed). Alternatives to LEEP: Not discussed. Informed Consent: Procedure involves removing a thin slice of cervical tissue to excise the area affected by HPV.
== END 2024-07-19 14:30 | disposition home or self-care (01) ==
LOC: HODSOBC 13:30
PROVIDERS: PCP Nurse Practitioner Family; Referring Provider Nurse Practitioner Family; Supervising Provider Obstetrics & Gynecology; Visit Provider Obstetrics & Gynecology
DX: R87.810 Cervical high risk human papillomavirus (HPV) DNA test positive (principal)
CPT/HCPCS: 99213; G0463

== ENCOUNTER → 2024-07-19 | Outpatient (BNVA) | payer MEDICAID, SELFPAY | END | disposition home or self-care (01) | PROVIDERS: PCP Nurse Practitioner Family; Referring Provider Nurse Practitioner Family; Visit Provider Nurse Practitioner Family | DX: R87.810 Cervical high risk human papillomavirus (HPV) DNA test positive (principal) | CPT/HCPCS: 99212; G0463 ==

== ENCOUNTER → 2024-07-27 | Outpatient (BNVA) | payer MEDICAID, SELFPAY | END | disposition home or self-care (01) | PROVIDERS: PCP Nurse Practitioner Family; Referring Provider Nurse Practitioner Family; Visit Provider Nurse Practitioner Family | DX: H66.93 Otitis media, unspecified, bilateral (principal); J02.9 Acute pharyngitis, unspecified; Z71.3 Dietary counseling and surveillance | CPT/HCPCS: 87804; 87811; 99213 ==

== ENCOUNTER 2024-08-03 14:19 | Outpatient (RCR) | payer MEDICAID, SELFPAY ==
[2024-08-03 16:12] LABS: Basophils # (Auto) 0.1 Thou/mm3 (0.0-0.2); Basophils % (Auto) 1 % (0-2.5); Eosinophils # (Auto) 0.1 Thou/mm3 (0.0-0.5); Eosinophils % (Auto) 3 % (0-10); Hematocrit 38.9 % (36.0-46.0); Hemoglobin 13.9 g/dL (12.0-16.0); Immature Granulocytes % (Auto) 0 % (0-0); Immature Granulocytes Auto 0.02 Thou/mm3 (0.00-0.00); Lymphocytes # (Auto) 1.3 Thou/mm3 (1.0-4.8); Lymphocytes % (Auto) 24 % (10-50); Mean Corpuscular HGB Conc 35.7 g/dl (31.0-37.0); Mean Corpuscular Hemoglobin 32.6 pg (25.0-35.0); Mean Corpuscular Volume 91 fL (80-100); Monocytes # (Auto) 0.3 Thou/mm3 (0.0-0.8); Monocytes % (Auto) 6 % (0-12); Neutrophils # (Auto) 3.4 Thou/mm3 (1.8-7.7); Neutrophils % (Auto) 66 % (37-80); Nucleated Red Blood Cell % 0 /100 WBC (0); Platelet Count 277 Thou/mm3 (140-440); RDW Standard Deviation 39.4 fL (36.4-46.3); Red Blood Count 4.27 Miln/mm3 (4.00-5.20); White Blood Count 5.1 Thou/mm3 (3.6-11.0)
[2024-08-03 16:45] LABS: Alanine Aminotransferase 256 U/L (10-49); Albumin, Serum 4.3 gm/dL (3.5-5.0); Albumin/Globulin Ratio 1.7 (1.2-2.2); Alkaline Phosphatase 107 U/L (46-116); Anion Gap 12 (7-16); Aspartate Amino Transferase 164 U/L (0-34); BUN/Creatinine Ratio 12 Ratio (12-20); Bilirubin,Total 0.7 mg/dL (0.3-1.2); Blood Urea Nitrogen 12 mg/dL (9-23); Calcium 9.4 mg/dL (8.3-10.6); Calcium (Corrected) 9.4 mg/dL (8.5-10.1); Carbon Dioxide 25.3 mMol/L (20.0-31.0); Chloride 106 mMol/L (98-107); Globulin 2.5 gm/dL (2.3-3.5); Glucose 143 mg/dL (74-106); Osmolality,Calculated 286 (275-295); Potassium 3.4 mMol/L (3.4-5.1); Sodium 143 mMol/L (136-145); Total Protein 6.8 gm/dL (5.7-8.2); eGFR > 60 See Note
[2024-08-03 17:01] LABS: CA 15-3 8.1 U/mL (<32.4)
== END 2024-08-09 23:59 | disposition home or self-care (01) ==
LOC: SCTC 14:19
PROVIDERS: PCP Nurse Practitioner Family; Referring Provider Nurse Practitioner Family; Visit Provider Internal Medicine Hematology & Oncology
DX: C50.511 Malignant neoplasm of lower-outer quadrant of right female breast (principal); Z17.0 Estrogen receptor positive status [ER+]; Z17.22 Progesterone receptor negative status; Z17.32 Human epidermal growth factor receptor 2 negative status; Z92.21 Personal history of antineoplastic chemotherapy; Z79.810 Long term (current) use of selective estrogen receptor modulators (SERMs); Z90.11 Acquired absence of right breast and nipple; E11.9 Type 2 diabetes mellitus without complications; R74.8 Abnormal levels of other serum enzymes
CPT/HCPCS: 36415; 80053; 85025; 86300

== ENCOUNTER → 2024-08-04 | Outpatient (BNVA) | payer MEDICAID, SELFPAY | END | disposition home or self-care (01) | PROVIDERS: PCP Nurse Practitioner Family; Referring Provider Nurse Practitioner Family; Visit Provider Nurse Practitioner Family | DX: L81.1 Chloasma (principal) | CPT/HCPCS: 99212; G0463 ==

== ENCOUNTER 2024-08-16 13:16 | Outpatient (RCR) | payer MEDICAID, SELFPAY ==
--- NOTE | 2024-08-18 07:24 | CTCFLWUP_ITS ---
Patient: DOMINGA GARCIA : 1975 Page 6 of 7 FOLLOW UP NOTE DATE OF SERVICE: 08/16/2024 NAME: DOMINGA GARCIA ACCOUNT: [id number] : 1975 AGE: 49 INTERVAL HISTORY: Jaya Galicia presented with stomach pain, inflammation, fatigue, bone aches, and skin discoloration following chemotherapy. Her history includes breast cancer with previous hormonal therapy. Liver enzymes remained elevated despite medication discontinuation. The patient was referred to a liver specialist for evaluation and fibroscan, with instructions to discontinue dairy products. For suspected diabetes, HbA1c testing was ordered with PCP referral. Letrozole was restarted for breast cancer management. For skin discoloration, dermatology referral was made with hydrocodone cream prescribed for nighttime use, along with recommendations for sunscreen and possible tretinoin acid. Laboratory, Imaging, and Diagnostic Test Results - Date: August 03, 2024 - Liver enzymes: High - Previous results: - Iron: Low History of Present Illness Jaya Galicia is a patient with a history of cancer who presents for follow-up of abnormal liver enzymes and medication management. The patient's liver enzymes have been elevated for an extended period, with recent improvement noted since discontinuing hormone-blocking medication. The patient was previously taking tamoxifen for cancer treatment, which was later changed to anastrozole. Last month, the patient stopped taking anastrozole due to concerns about its potential impact on liver function. Since discontinuing the medication, the patient's liver function tests (LFTs) have s hown improvement. The patient has also experienced weight gain, which may be contributing to fatty liver disease and further impacting liver enzyme levels. The patient reports no specific symptoms related to liver dysfunction or other health concerns during this visit. Adherence to the recommendation to discontinue the hormone-blocking medication has been maintained since the last visit. Medications and Supplements - Tamoxifen - Discontinued. Was prescribed for cancer. - Anastrozole - Started after tamoxifen. - Discontinued last month due to elevated liver enzymes. - Ibuprofen - Taken occasionally. - Tylenol - Advised to avoid due to potential liver damage. Review of Systems General: Positive for weight gain. Objective: Laboratory, Imaging, and Diagnostic Test Results - CBC: Hemoglobin normal, red cells normal - Liver enzymes: Elevated, trending down since last visit - Blood sugar: Slightly elevated - Echocardiogram: Mild abnormality noted, normal functioning Review of Systems General: Positive for weight gain. Gastrointestinal: Positive for left-sided pain under ribs. Genitourinary: Negative for burning sensation when urinating. Musculoskeletal: Positive for bone pain, joint pain. Other: Positive for pain near ovary. ONCOLOGY HISTORY:?[facility] Hx? 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 S/p ultrasound-guided biopsy of the right breast lesion (01/16/2022) S/p 6 cycles of neoadjuvant TCH chemotherapy since 03/21/2022 - 07/11/2022). S/p lumpectomy and sentinel lymph node biopsy (09/20/2022). Patient had complete pathological response BRCA 1and2 negative. Started on adjuvant tamoxifen on 10/21/2022 Completed a total of 1 year of adjuvant Herceptin on 08/07/2023 last menstrual cycle March 2022. REASON FOR TODAY?S VISIT: This is office follow-up visit. Ms. Garcia is here at [facility]. She complains of new onset pain in the lower part of the right breast for last few weeks. She denies any nipple discharge. Denies any other complaints. Denies any cough, chest pain, abdominal pain or leg cramps. Patient states that she is having memory problems. She completed a total of 1 year of Herceptin on 08/07/2023. Malignant neoplasm of nipple and areola, right female breast [ICD10] C50.011 DATE OF DIAGNOSIS: 01/16 2022 STAGE/TNM: TREATMENT HISTORY: Care?Plan Start?Date Cycle Day Intent Trastuzumab?6?mg/kg? To?Finish?the?Year 11/11/2022 1 21 Curative?(adjuvant) Trastuzumab?6?mg/kg? To?Finish?the?Year 02/17/2023 1 21 Curative?(adjuvant) TCH?1 02/03/2022 1 21 Curative?(primary) VENOfer?200mg?IV?wkly?for?10?weeks 03/25/2022 1 70 Palliative HISTORY OF PRESENT ILLNESS: Dominga Garcia is a 49-year-old SPA speaking female without any significant past medical history has the following oncology history. September 2021: Ms. Garcia started feeling a lump in the right breast as well as in the right breast. 11/14/2021: Right breast diagnostic mammogram and ultrasound? 01/16/2022: Ultrasound-guided right breast biopsy? 02/18/2022: BRCA1 and BRCA2 analysis?negative 02/27/2022: MRI of the brain with and without contrast? 04/09/2022: PET/CT scan? 03/21/2022?07/11/2022: Patient was treated with 6 cycles of neoadjuvant TCH chemotherapy. 08/28/2022: MRI of the breast? 09/20/2022: Ms. Garcia had right breast lumpectomy and sentinel lymph node biopsy. 11/13/2022 - 01/07/2023: Ms. Garcia had 6300 cGy radiation therapy to the right breast, regional node sites including right supra clavicle as well as right apex region of the lung. 01/29/2023: Echocardiogram?LVEF 55-60%. 02/05/2023: CT scan of the chest and abdomen with IV contrast? OTHER MEDICAL HISTORY/CONDITIONS: Right?breast?cancer?-?2021 Cholecystectomy - 13 yrs ago Tubal ligation - 13 yrs ago FAMILY HISTORY: Cancer History:?Mat cousins x 2 - breast - dx age 34 and 52 SOCIAL HISTORY: Occupational?History:?[employer] Education?Level:?Completed High School Marital?Status:? 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 letrozole - 2.5 mg 1 tab Daily?Palabra Meds? Medications Last Reconciled by Tanisha Raya MA on 08/16/2024 ALLERGIES: No Known Drug Allergies REVIEW OF SYSTEMS: A complete 14-point review of systems was performed and is negative except as noted in interval history. PHYSICAL EXAMINATION:?[facility] PE? VITAL SIGNS: Temperature?98, B/P?129/86, Oxygen?Saturation?97% PAIN: 0 - No pain EYE: Conjunctivae is white MOUTH: Oral cavity is dry. No masses palpable in the right breast CHEST: Clear to auscultation. No wheezes or rales audible. No masses palpable CARDIAC: Rhythm regular, no murmurs or gallops present. ABDOMEN: Soft. No hepatomegaly. No splenomegaly. EXTREMITIES: No pedal edema or cyanosis. Physical Examination Abdomen: Pain noted under the left ribs. No hepatomegaly appreciated on palpation. Musculoskeletal: Pain reported in bones and joints. Laboratory, Imaging, and Diagnostic Test Results - Liver enzymes: - Elevated since November 2023 - Current results: Significantly higher than previous - Last imaging scan (November 2023): Negative LABORATORY DATA: I have personally reviewed and interpreted each of the patient?s relevant lab tests, abnormal findings are below: Date 06/16/24 08/03/24 ??WHITE?BLOOD?COUNT?(Thou/mm3) 4.3 5.1 ??RED?BLOOD?COUNT?(Miln/mm3) 3.96?L 4.27 ??HEMOGLOBIN?(gm/dl) 12.7 13.9 ??HEMATOCRIT?(%) 35.5?L 38.9 ??PLATELET?COUNT?(Thou/mm3) 249 277 ??NEUTROPHILS?%,?AUTO?(%) 59 66 ??LYMPH?%,?AUTO?(%) 29 24 ??NEUTROPHILS,?AUTO?(Thou/mm3) 2.5 3.4 ??GLUCOSE,RANDOM?(mg/dL) 120?H 143?H ??BLOOD?UREA?NITROGEN?(mg/dL) 14 12 ??CREATININE?(mg/dL) 0.60 1.00 ??SODIUM?(mmol/L) 140 143 ??POTASSIUM?(mmol/L) 3.9 3.4 ??CHLORIDE?(mmol/L) 106 106 ??CrCl?(CandG)?(ml/min) 128.77 75.52 ??AST/SGOT?(Unit/L) 126?H 164?H ??ALT/SGPT?(Unit/L) 193?H 256?H ??ALKALINE?PHOSPHATASE?(Unit/L) 94 107 ??BILIRUBIN,?TOTAL?(mg/dL) 1.0 0.7 ??PROTEIN?TOTAL?(gm/dl) 6.7 6.8 ??ALBUMIN,?SERUM?(gm/dl) 4.2 4.3 ??GLOBULIN?(gm/dl) 2.5 2.5 ??ALBUMIN/GLOBULIN?RATIO 1.7 1.7 ??CALCIUM,?SERUM?(mg/dL) 8.9 9.4 ??CALCIUM?SERUM?(CORRECTED)?(mg/dL) 8.9 9.4 ASSESSMENT/PLAN:?Haja Henry Assessment/Plan? Assessment and Plan: Jaya Galicia presents with stomach pain, inflammation, elevated liver enzymes, fatigue, bone aches, and skin discoloration following chemotherapy. Elevated liver enzymes Assessment: Patient's liver enzymes remain elevated despite discontinuation of all medications. Previous blood work from August 03 showed persistently high levels. No evidence of cancer in the body or liver. A hepatitis panel, diabetes tests, and alpha-fetoprotein were performed in February. Further evaluation by a liver specialist is warranted. Plan: - Refer to liver specialist for evaluation and fibroscan - Order repeat liver function tests - Discontinue milk and milk products Suspected diabetes mellitus Assessment: Patient reports consistently high blood sugar levels, suggesting possible diabetes. Previous labs did not include diabetes tests. Further evaluation is necessary to confirm the diagnosis. Plan: - Order glycosylated hemoglobin A1c test - Refer to primary care physician for comprehensive diabetes workup Breast cancer follow-up Assessment: No current evidence of cancer. Patient was previously on hormonal therapy, which was discontinued due to elevated liver enzymes. Plan: - Resume hormonal therapy: start letrozole (dose and frequency not specified) Skin discoloration Assessment: Patient reports skin discoloration since chemotherapy. Possible melasma, which may be exacerbated by iron deficiency. Previous iron levels were low. Plan: - Refer to second grade teacher - Prescribe hydrocodone cream for nighttime application (use [employer] coupon for discount) - Recommend daily sunscreen use - Consider prescribing tretinoin acid (not definitively decided) - Check iron levels Fatigue and bone aches Assessment: Patient reports fatigue and bone aches. These symptoms may be related to underlying conditions such as potential diabetes or iron deficiency. Plan: - Address through management of other identified issues (diabetes workup, iron level check) RETURN TO CLINIC: I reviewed the diagnosis, prognosis, and recommended treatment/procedure options with the patient (and/or their legal hr representative), including the potential benefits, risks, side effects and alternative therapies. We also discussed the option of no treatment and the possibility of clinical trial participation, if applicable. All questions were addressed, and they demonstrated understanding. They provided informed consent to proceed with the proposed plan of care. BILLING AND COMPLIANCE: I reviewed external records from providers outside my specialty as summarized above. I spent a total of 50 minutes on this patient?s care on the day of their visit excluding time spent related to any billed procedures. This time includes time spent with the patient as well as time spent documenting in the medical record, reviewing patients records and tests, obtaining history, placing orders, communicating with other healthcare professionals, counseling the patient, family or caregiver, and/or care coordination for the diagnoses above. Electronically Signed by: Nirav Henry MD T: 7:22 AM CC: PCP: Mellisa Ward Np Referring: Aleta Mellisa israel Np This document was completed utilizing speech recognition software. Grammatical errors, random word insertions, pronoun errors, and incomplete sentences are an occasional consequence of this system due to software limitations, ambient noise, and hardware issues. Any formal questions or concerns about the content, text or information contained within the body of this dictation should be directly addressed to the provider for clarification.
== END 2024-09-09 23:59 | disposition home or self-care (01) ==
LOC: SCTC 13:16
PROVIDERS: PCP Nurse Practitioner Family; Referring Provider Nurse Practitioner Family; Visit Provider Internal Medicine Hematology & Oncology
DX: C50.511 Malignant neoplasm of lower-outer quadrant of right female breast (principal); Z17.0 Estrogen receptor positive status [ER+]; Z17.22 Progesterone receptor negative status; Z17.31 Human epidermal growth factor receptor 2 positive status; Z90.11 Acquired absence of right breast and nipple; Z79.811 Long term (current) use of aromatase inhibitors; R10.9 Unspecified abdominal pain; R74.8 Abnormal levels of other serum enzymes; R53.0 Neoplastic (malignant) related fatigue; R23.8 Other skin changes; T45.1X5D Adverse effect of antineoplastic and immunosuppressive drugs, subsequent encounter; R73.9 Hyperglycemia, unspecified
CPT/HCPCS: 99213; G0463

== ENCOUNTER → 2024-09-02 | Outpatient (BNVA) | payer MEDICAID, SELFPAY | END | disposition home or self-care (01) | PROVIDERS: PCP Nurse Practitioner Family; Referring Provider Nurse Practitioner Family; Visit Provider Nurse Practitioner Family | DX: Z00.01 Encounter for general adult medical examination with abnormal findings (principal); R10.2 Pelvic and perineal pain; R10.13 Epigastric pain; E55.9 Vitamin D deficiency, unspecified; E78.1 Pure hyperglyceridemia; R73.03 Prediabetes; Z71.3 Dietary counseling and surveillance; R94.5 Abnormal results of liver function studies; Z12.11 Encounter for screening for malignant neoplasm of colon; Z71.85 Encounter for immunization safety counseling; E66.9 Obesity, unspecified; K64.9 Unspecified hemorrhoids | CPT/HCPCS: 99173; 99214; 99215 ==

== ENCOUNTER 2024-09-09 07:45 | Day surgery (SDC) | payer MEDICAID, SELFPAY ==
[2024-09-08 07:34] VITALS: BMI 34.1
[2024-09-08 08:47] LABS: Basophils # (Auto) 0.1 Thou/mm3 (0.0-0.2); Basophils % (Auto) 1 % (0-2.5); Eosinophils # (Auto) 0.1 Thou/mm3 (0.0-0.5); Eosinophils % (Auto) 3 % (0-10); Hematocrit 39.1 % (36.0-46.0); Hemoglobin 13.5 g/dL (12.0-16.0); Immature Granulocytes Auto 0.01 Thou/mm3 (0.00-0.00); Lymphocytes # (Auto) 1.5 Thou/mm3 (1.0-4.8); Lymphocytes % (Auto) 33 % (10-50); Mean Corpuscular HGB Conc 34.5 g/dl (31.0-37.0); Mean Corpuscular Hemoglobin 31.8 pg (25.0-35.0); Mean Corpuscular Volume 92 fL (80-100); Monocytes # (Auto) 0.3 Thou/mm3 (0.0-0.8); Monocytes % (Auto) 7 % (0-12); Neutrophils # (Auto) 2.5 Thou/mm3 (1.8-7.7); Neutrophils % (Auto) 55 % (37-80); Nucleated Red Blood Cell # 0.00 Thou/mm3 (0.00-0.00); Nucleated Red Blood Cell % 0 /100 WBC (0); Platelet Count 253 Thou/mm3 (140-440); RDW Standard Deviation 40.8 fL (36.4-46.3); Red Blood Count 4.25 Miln/mm3 (4.00-5.20); White Blood Count 4.6 Thou/mm3 (3.6-11.0)
[2024-09-08 08:54] LABS: HCG,Qualitative Serum Negative
[2024-09-08 08:59] LABS: Alanine Aminotransferase 265 U/L (10-49); Albumin, Serum 4.5 gm/dL (3.5-5.0); Albumin/Globulin Ratio 1.6 (1.2-2.2); Alkaline Phosphatase 100 U/L (46-116); Anion Gap 5 (7-16); Aspartate Amino Transferase 178 U/L (0-34); BUN/Creatinine Ratio 18 Ratio (12-20); Bilirubin,Total 1.1 mg/dL (0.3-1.2); Blood Urea Nitrogen 14 mg/dL (9-23); Calcium 9.6 mg/dL (8.3-10.6); Calcium (Corrected) 9.6 mg/dL (8.5-10.1); Carbon Dioxide 25.9 mMol/L (20.0-31.0); Chloride 109 mMol/L (98-107); Creatinine (Component) 0.8 mg/dL (0.6-1.3); Estimated Creatinine Clearance 91.1 mL/min (>60); Globulin 2.8 gm/dL (2.3-3.5); Glucose 134 mg/dL (74-106); Osmolality,Calculated 281 (275-295); Potassium 3.9 mMol/L (3.4-5.1); Sodium 140 mMol/L (136-145); Total Protein 7.3 gm/dL (5.7-8.2); eGFR > 60 See Note
[2024-09-09] VITALS (8 sets, daily range): BP systolic 125–146; BP diastolic 76–89; PULSE 57–78; RESP 12–19; TEMP 36.1–36.6; O2SAT 97–100; BMI 34.2
[2024-09-09] MEDS: RINGERS LACTATED 1000 ML 1,000 ML 20 ML IV (08:10)
--- NOTE | 2024-09-09 09:52 | ESHP_ITS ---
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 The patient underwent a pap smear with her PCP for the first time after 15 years, which revealed a positive result for HPV18 high-risk subtype. The patient reports a history of pelvic pain for several years. She is currently undergoing chemotherapy for breast cancer. A previous ultrasound showed a small area of uterine fundal fibroadegeneration without any adnexal masses, although it was a limited study and the right ovary was not visualized. The patient denies any other gynecologic symptoms, including abnormal bleeding, discharge, dysuria, hematuria, or urinary urgency. She is currently not sexually active and has had only one partner for over 20 years. The patient's recent pap smear, performed on June 03, 2024, was negative for intraepithelial lesion or malignancy. However, the HPV18 high-risk subtype was positive, placing her in an intermediate risk category with approximately 4.5% risk for CIN3+, according to ASCCP guidelines. Medical history includes breast cancer, currently undergoing chemotherapy, and pelvic pain for several years. Surgical history includes breast cancer treatment, including chemotherapy. The patient is currently on chemotherapy for breast cancer treatment. ROS: Genitourinary: Positive for pelvic pain. Negative for abnormal bleeding, discharge, dysuria, hematuria, urinary urgency. Review of Systems Review of Systems Systems Reviewed: All systems reviewed, normal except as documented Meds Home Medications and Allergies Home Medications ?Medication ?Instructions ?Recorded ?Confirmed ?Type No Known Home Medications 09/08/24 07/ History Allergies Allergy/AdvReac Type Severity Reaction Status Date / Time No Known Allergies Allergy Verified 09/08/24 07:33 Exam - ELECTRONIC MUSICAL INSTRUMENT REPAIRER Vital Signs Temp Pulse Resp BP Pulse Ox 97.2 F 65 14 134/78 H 97 09/09/24 08:10 09/09/24 08:10 09/09/24 08:10 09/09/24 08:10 09/09/24 08:10 Constitutional Constitutional: no acute distress Routine HEENT Exam Head: Present normocephalic and atraumatic Eye: Present EOMI and PERRL ENT: Present mucous membranes moist Routine Neck Exam Neck: Present supple and trachea midline Routine Respiratory Exam Respiratory: Present chest non-tender, lungs clear, normal breath sounds and no resp distress Routine Cardiovascular Exam Cardiovascular: Present RRR Routine Abdominal Exam Abdominal: Present soft and normoactive bowel sounds Routine Extremities Exam Extremities: Present full ROM Routine Skin Exam Skin: Present intact and dry Routine Neurological Exam Neurological: Present alert, oriented X3 and CN II-XII intact Routine Psychiatric Exam Psychiatric: Present normal affect and normal thought process 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 - Positive for HPV18 high-risk subtype. - Categorized as intermediate risk, approximately 4.5% risk for CIN3+. - 15-year absence from gynecological screening. - History of chemotherapy for breast cancer, potentially suppressing immunity. - Patient denies abnormal bleeding, discharge, dysuria, hematuria, or urinary urgency. - Reports pelvic pain for several years. - Previous ultrasound showed small area of uterine fundal fibroadegeneration without adnexal masses. Plan: - Perform LEEP (Loop Electrosurgical Excision Procedure) under anesthesia Surgical Counseling Benefits of LEEP: Removes affected tissue, reduces risk of cervical cancer progression. Risks of LEEP: Standard surgical risks (not specifically discussed). Alternatives to LEEP: Onservation/Repeat Colposcopy-Pap but only diagnostic not therapeutic Quality Measures Quality Measures VTE prophylaxis
--- NOTE | 2024-09-09 11:07 | SUR.PHASEI ---
1102 Patient arrived to recovery resting comfortably in [facility], LMA in place;on oxygen 4L, breathing unlabored, vital signs stable, dressing intact to vaginal area; peripad, no bleeding noted, report received from Lakisha MONSALVE and Dr. Reich
--- NOTE | 2024-09-09 11:10 | ESOP_ITS ---
Operative Note - [facility] Procedure Date of procedure: 09/09/24 Procedure Performed: Loop electrosurgical excision of cervix Indication: High risk HPV 18 positive on Pap smear Anesthesia type: General Procedure description: Informed consent was obtained and the patient was taken to the operating room.? Identity was confirmed by double identifiers and she was placed on the operating table.? General anesthesia was administered and she was now positioned on Clay stirrups in the dorsal lithotomy position.? The perineum was prepped in the usual sterile fashion and sterile drapes were applied.? A straight catheter was used to empty the bladder. A self-retaining speculum was introduced and the cervix was brought into adequate visualization.? The transitional zone was visualized all along the circumference of the cervix.? Bilateral cervical blocks were placed. The cervix was placed under traction using the above suture and a 20 mm loop electrode was used to do a single pass of the cervix and obtain a specimen that included the entire transitional zone.???The specimen was handed over to be sent to pathology. A ballpoint was used on the Bovie and the excision base was adequately cauterized.? The site was visualized and noted to be adequately hemostatic. All instruments were now withdrawn.? The speculum was removed.? The patient was undraped and the skin was cleaned.? General anesthesia was reversed and she was taken to the recovery room in a stable and awake condition.? The patient tolerated the entire procedure well.? No acute complications were encountered.? All instrument, sponge and lap counts were correct x2. Estimated blood loss (ml): 5 Complications: none Surgical staff Operation Date: 09/09/24 09:30 <No data on this case meets the specified criteria> Diagnosis Discharge Diagnosis (1) Human papillomavirus (HPV) type 18 DNA detected in cervical specimen: Status: Acute Problem List Completed Was Problem List Reviewed/Reconciled?: Yes
--- NOTE | 2024-09-09 12:13 | SUR.PHASEII ---
1213 Patient meets discharge criteria from recovery, awake and alert, breathing unlabored, vital signs stable, denies pain, dressing intact; scant amount of blood noted to pad, patient and her son educated on post op bleeding and when to seek medical attention both receptive, patient eating ice chips; tolerated well, able to dress herself into her clothing, discharge instructions given to patient and patients son with the assistance of the hospital dobby loom fixer [place], patients son on speaker phone and discharge instructions signed at car side by patients son, patient given all her belongings prior to discharge, transported via wheelchair and left in a private vehicle
== END 2024-09-09 12:13 | disposition home or self-care (01) ==
PROVIDERS: PCP Nurse Practitioner Family; Referring Provider Obstetrics & Gynecology; Visit Provider Obstetrics & Gynecology
PROC: 0UBC7ZZ Excision of Cervix, Via Natural or Artificial Opening (ICD-10-PCS; CPT 57522; principal; 2024-09-09 09:15)
DX: R87.810 Cervical high risk human papillomavirus (HPV) DNA test positive (principal); Z92.21 Personal history of antineoplastic chemotherapy; Z85.3 Personal history of malignant neoplasm of breast
CPT/HCPCS: 57522; 36415; 80053; 84703; 85025; 86850; 86900; 86901; A4217; A4649; J0131; J1100; J1885; J2250; J2405; J2704; J3010; J7120

== ENCOUNTER → 2024-09-26 | Outpatient (CLI) | payer MEDICAID, SELFPAY ==
--- NOTE | 2024-09-26 13:30 | ECHO_ITS ---
Transthoracic Echo Report Ht (in): 63 Wt (lb): 196 Exam Location: Echo Lab Status: Pread[employer] Sales Executive: Kisha Hickman Indications: Procedure Performed: BP: / HR: Technical Quality: Fair MEASUREMENTS (Male / Female) Normal Values 2D ECHO LV Diastolic Diameter PLAX 4.8 cm 4.2 - 5.9 / 3.9 - 5.3 cm LV Systolic Diameter PLAX 2.6 cm IVS Diastolic Thickness 0.5 cm 0.6 - 1.0 / 0.6 - 0.9 cm LVPW Diastolic Thickness 0.8 cm 0.6 - 1.0 / 0.6 - 0.9 cm LV Relative Wall Thickness 0.3 LVOT Diameter 1.6 cm LV Ejection Fraction MOD BP 57.5 % >= 55 % LV Ejection Fraction MOD 4C 63.1 % LV Ejection Fraction 4C AL 63.1 % LV Ejection Fraction MOD 2C 54.5 % LV Ejection Fraction 2C AL 53.8 % LA Volume Index 8.3 cm?/m? 16 - 28 cm?/m? M-MODE Aortic Root Diameter MM 2.4 cm LA Systolic Diameter MM 3.1 cm LA Ao Ratio MM 1.3 AV Cusp Separation MM 1.6 cm DOPPLER AV Peak Velocity 138.0 cm/s AV Peak Gradient 7.6 mmHg AV Mean Gradient 3.0 mmHg AV Velocity Time Integral 30.8 cm LVOT Peak Velocity 113.0 cm/s LVOT Peak Gradient 5.1 mmHg LVOT Velocity Time Integral 27.5 cm AV Area Cont Eq vti 1.8 cm? AV Area Cont Eq pk 1.6 cm? MV Area PHT 3.5 cm? Mitral E Point Velocity 95.1 cm/s Mitral A Point Velocity 67.9 cm/s Mitral E to A Ratio 1.4 LV E' Lateral Velocity 11.2 cm/s Mitral E to LV E' Lateral Ratio 8.5 LV E' Septal Velocity 9.0 cm/s Mitral E to LV E' Septal Ratio 10.5 TR Peak Velocity 231.5 cm/s TR Peak Gradient 21.4 mmHg PV Peak Velocity 125.0 cm/s PV Peak Gradient 6.3 mmHg FINDINGS Left Ventricle Normal left ventricular size, wall thickness, systolic function with no obvious regional wall motion abnormalities. Normal left ventricular diastolic filling pattern for age. The ejection fraction is visually estimated at 65%. Right Ventricle The right ventricle is normal in size and systolic function. Left Atrium The left atrium is normal by two-dimensional, color flow and Doppler imaging with no structural abnormalities, no thrombus formation present. Right Atrium The right atrium is normal by two-dimensional imaging, color flow and Doppler imaging with no structural abnormalities, no thrombus formation present. Atrial Septum The interatrial septum appears normal with no evidence of a shunt. Aorta The aorta is normal by two-dimensional, color flow and Doppler interrogation. Mitral Valve The mitral valve is normal by two-dimensional, color flow and Doppler interrogation. Trace mitral regurgitation. Aortic Valve The aortic valve is trileaflet and normal by two-dimensional, color flow and Doppler interrogation. There is no significant aortic valve regurgitation. Tricuspid Valve The tricuspid valve is normal by two-dimensional, color flow and Doppler interrogation. There is trace tricuspid valve regurgitation. Pulmonic Valve The pulmonic valve is not well visualized. There is no significant pulmonic valve regurgitation. Vessels Inferior vena cava not well visualized. Pericardium The pericardium is normal by two-dimensional imaging. There is no significant pericardial effusion. CONCLUSIONS Indication: Malignant neoplasm of nipple and areola, right female breast The transthoracic study is normal by two-dimensional, color flow imaging and Doppler interrogation. Normal LV size and function. Approximate ejection fraction is 65%. The RV is normal in size and systolic function. Trace mitral and trace tricuspid regurgitaton No wall motion abnormalities Rayne Ross (Electronically Signed) Final Date: 26 September 2024 17:36
== END | disposition home or self-care (01) ==
PROVIDERS: Referring Provider Internal Medicine Hematology & Oncology; Visit Provider Internal Medicine Hematology & Oncology
DX: I08.1 Rheumatic disorders of both mitral and tricuspid valves (principal); C50.011 Malignant neoplasm of nipple and areola, right female breast
CPT/HCPCS: 93306

== ENCOUNTER → 2024-09-27 | Outpatient (BNVA) | payer MEDICAID, SELFPAY | END | disposition home or self-care (01) | PROVIDERS: PCP Nurse Practitioner Family; Referring Provider Nurse Practitioner Family; Visit Provider Nurse Practitioner Family | DX: Z71.2 Person consulting for explanation of examination or test findings (principal); R10.13 Epigastric pain; R94.5 Abnormal results of liver function studies | CPT/HCPCS: 99214 ==

== ENCOUNTER 2024-09-28 14:48 | Outpatient (AMB) | payer MEDICAID, SELFPAY ==
[2024-09-28 15:03] VITALS: BP 134/83; PULSE 76; RESP 17; TEMP 36.6; O2SAT 98; BMI 33.9
--- NOTE | 2024-09-28 15:03 | GYNCLNT_ITS ---
Vital Signs 09/28/24 15:03 Height 1.6 m Height Method Measured Weight 86.75 kg Weight Measurement Method Standing Scale BMI 33.9 BP 134/83 H Blood Pressure Source Automatic Cuff Blood Pressure Location Right Upper Arm Position Sitting Respiration 17 Pulse 76 Pulse Source Monitor Temp 97.9 F Temp Source Temporal Artery Scan Pulse Oximetry (%) 98 Oxygen Delivery Method Room Air Allergies/Home Meds Allergies & Medications Allergies No Known Allergies Allergy (Verified 09/28/24 15:04) Medication Reconciliation No Known Home Medications 09/27/24 [History Confirmed 09/28/24] Intake Visit Data Collection New Patient or Established: Established Patient (seen at [facility] within 3 years) Reason for Visit:: POST-OP Consent obtained for Telemed Visit: No Seen by Clinical Staff ONLY (RN/MA): No Small Package And Bundle Sorter Clerk Required: Yes Small Package And Bundle Sorter Clerk's name/title: DOMINGA Do You Feel Safe at Home: Yes Authorities Contacted: N/A PCP or OBGYN visit in last 3 months: Yes Date of Last PCP or OBGYN visit: 09/27/24 Hx Now: No Are you currently on any form of Control: No Pain Present Currently: No Pain Scale Used: Delarosa-Borjas/Numerical Pain scale:: 0 Smoking Status Smoking Status: Never smoker 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 Menstrual regularity: irregular Monthly: No Age at menarche: 14 Menopausal: No Currently sexually active: No Additional comments: LAST PERIOD 03/2022 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 1. Little interest or pleasure in doing things: not at all PHQ-9 8. Moving or speaking so slowly that other people could have noticed? - Or the opposite - being so fidgety or restless that you have been moving around a lot more than usual: not at all Source: Developed by Drs. Angel Myers, Bridgett Fontanez, Alberto Solis and colleagues, with an educational lizzie from [employer] Social History Living Situation History Lives With: Children Housing: House Tobacco History Smoking Status: Never smoker Second Hand Smoke Exposure: No Alcohol History Alcohol Intake: Never Substance Use History Substance Use: NEVER Domestic Abuse History Do You Feel Safe at Home: Yes History of Present Illness HPI Narrative Dominga Lincoln presents for follow-up of a pathology report after a LEEP (Loop Electrosurgical Excision Procedure) of the cervix. The patient was found to have high-grade squamous intraepithelial lesion (HSIL) on her cervical biopsy, with positive surgical margins at the 12 o'clock position and negative margins at the 9 o'clock position. The 6 o'clock specimen was negative for intraepithelial lesion or malignancy. She has a history of breast cancer and chemotherapy. The patient's current condition is described as high-grade precancer, with a 5% chance of developing into cancer. Due to the positive margins and the risk of progression, a hysterectomy has been recommended within the next 3 to 6 months. The patient has expressed a preference to have the procedure performed locally rather than being referred to a specialist in [place]. She is a 49-year-old female. 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 Exam General General Appearance: alert, in no apparent distress and healthy appearing Head Head exam: atraumatic Neck Neck exam: Present normal inspection and trachea midline Chest Chest inspection: Present normal inspection and symmetric chest wall rise External exam: Present normal external exam; Absent tenderness Neuro Neurological exam: Present oriented X3 Psych Psychiatric exam: Present normal affect and normal mood Office Procedures OB Clinic LOC & Office Proc's Nursing/Assessment Patient Status: Established Patient OB Clinic Nursing Assessment: Medication Reconciliation, Update PMH in EMR and Vital Signs OB Clinic Coordination of Care: Complex Care and Chronic Disease 1-5, Consent,records obtained, informed consent, Education Simp Pt/Fam, 4+ Authorizations needed, Lab and Imaging orders and Results/Orders obtained Established Patient Charge Established Patient Point Assignment: 120 Established Patient Point Charge: EP Level 4 (120-155) Assessment & Plan Diagnosis / Problem List (1) Human papillomavirus (HPV) type 18 DNA detected in cervical specimen: Status: Acute (2) HSIL (high grade squamous intraepithelial lesion) on Pap smear of cervix: Status: Acute Assessment and Plan: - Pathology report (LEEP of cervix): - 12 o'clock specimen: Positive for high-grade squamous intraepithelial lesion with positive surgical margins, negative for invasion - 9 o'clock specimen: Positive for high-grade squamous intraepithelial lesion with negative margins - 6 o'clock specimen: Negative for intraepithelial lesion or malignancy (3) Dysplasia of cervix uteri, unspecified: Status: Acute (4) Cancer of right breast: Status: Resolved Qualifiers: Breast location: unspecified site of breast Estrogen receptor status: unspecified Patient sex: female Qualified Code(s): C50.911 - Malignant neoplasm of unspecified site of right female breast Plan High-grade squamous intraepithelial lesion (HSIL) of cervix with positive margins: - LEEP pathology shows positive HSIL at 12 o'clock with positive surgical margins. - HSIL at 9 o'clock with negative margins. - 6 o'clock specimen negative for intraepithelial lesion or malignancy. - Approximately 5% risk of progression to cervical cancer with positive margins. - High-grade precancerous lesion requiring definitive management to prevent potential malignant transformation. Plan: - Recommend total hysterectomy within the next 3-6 months. - Discuss surgical options: ? Open abdominal hysterectomy available at current facility ? Laparoscopic hysterectomy option available with referral to specialist in [place] - Patient opts for open hysterectomy at current facility. - Submit insurance authorization for hysterectomy. - Schedule surgery once insurance approval is obtained. - Inform patient that hysterectomy should be curative for this condition. - Educate patient on the difference between high-grade precancer and cancer.
== END 2024-09-28 15:31 | disposition home or self-care (01) ==
LOC: HODSOBC 14:48
PROVIDERS: PCP Internal Medicine Hematology & Oncology; Referring Provider Internal Medicine Hematology & Oncology; Supervising Provider Obstetrics & Gynecology; Visit Provider Obstetrics & Gynecology
DX: N87.9 Dysplasia of cervix uteri, unspecified (principal); R87.810 Cervical high risk human papillomavirus (HPV) DNA test positive; Z85.3 Personal history of malignant neoplasm of breast; Z92.21 Personal history of antineoplastic chemotherapy
CPT/HCPCS: 99214; G0463

== ENCOUNTER → 2024-09-28 | Outpatient (CLI) | payer MEDICAID, SELFPAY ==
--- NOTE | 2024-09-28 10:30 | XR_ITS ---
Examination: Ultrasound liver elastography Date and time: September 28, 2024 1052 hours INDICATIONS: Elevated liver function tests 15 days ago on laboratory examination, history right breast cancer TECHNIQUE AND FINDINGS: Sonographic images liver with assessment tissue stiffness average Liver 14.7 cm fatty infiltration smooth contour no focal liver lesions. Normal hepatopedal portal venous flow Patent IVC Tissue stiffness average 1.23 m/s, normal mild liver fibrosis staging IMPRESSION: Normal to mild liver fibrosis staging
== END | disposition home or self-care (01) ==
LOC: CDIM 10:23
PROVIDERS: PCP Nurse Practitioner Family; Referring Provider Internal Medicine Hematology & Oncology; Visit Provider Internal Medicine Hematology & Oncology
DX: K74.00 Hepatic fibrosis, unspecified (principal); C50.011 Malignant neoplasm of nipple and areola, right female breast
CPT/HCPCS: 76981

== ENCOUNTER 2024-09-29 15:14 | Outpatient (RCR) | payer MEDICAID, SELFPAY ==
--- NOTE | 2024-10-04 00:52 | CTCFLWUP_ITS ---
Patient: DOMINGA GARCIA : 1975 Page 7 of 8 FOLLOW UP NOTE DATE OF SERVICE: 09/29/2024 NAME: DOIMNGA GARCIA ACCOUNT: [id number] : 1975 AGE: 49 INTERVAL HISTORY: At the last visit patient was restarted on endocrine therapy. Patient have transaminitis and her transaminitis is likely from her other medications and unrelated to endocrine therapy. Patient was having transaminitis even when she was not taking antiendocrine therapy. Since last visit patient have not done any recent labs. Medications and Supplements - Tamoxifen - Discontinued. Was prescribed for cancer. - Anastrozole - Started after tamoxifen. - Discontinued last month due to elevated liver enzymes. - Ibuprofen - Taken occasionally. - Tylenol - Advised to avoid due to potential liver damage. Review of Systems General: Positive for weight gain. Objective: Laboratory, Imaging, and Diagnostic Test Results - CBC: Hemoglobin normal, red cells normal - Liver enzymes: Elevated, trending down since last visit - Blood sugar: Slightly elevated - Echocardiogram: Mild abnormality noted, normal functioning Review of Systems General: Positive for weight gain. Gastrointestinal: Positive for left-sided pain under ribs. Genitourinary: Negative for burning sensation when urinating. Musculoskeletal: Positive for bone pain, joint pain. Other: Positive for pain near ovary. 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 S/p ultrasound-guided biopsy of the right breast lesion (01/16/2022) S/p 6 cycles of neoadjuvant TCH chemotherapy since 03/21/2022 - 07/11/2022). S/p lumpectomy and sentinel lymph node biopsy (09/20/2022). Patient had complete pathological response BRCA 1and2 negative. Started on adjuvant tamoxifen on 10/21/2022 Completed a total of 1 year of adjuvant Herceptin on 08/07/2023 last menstrual cycle March 2022. REASON FOR TODAY?S VISIT: This is office follow-up visit. Ms. Garcia is here at [facility]. She complains of new onset pain in the lower part of the right breast for last few weeks. She denies any nipple discharge. Denies any other complaints. Denies any cough, chest pain, abdominal pain or leg cramps. Patient states that she is having memory problems. She completed a total of 1 year of Herceptin on 08/07/2023. Malignant neoplasm of nipple and areola, right female breast [ICD10] C50.011 DATE OF DIAGNOSIS: 01/16 2022 STAGE/TNM: TREATMENT HISTORY: Care?Plan Start?Date Cycle Day Intent TCH?1 02/03/2022 1 21 Curative?(primary) VENOfer?200mg?IV?wkly?for?10?weeks 03/25/2022 1 70 Palliative Trastuzumab?6?mg/kg? To?Finish?the?Year 11/11/2022 1 21 Curative?(adjuvant) Trastuzumab?6?mg/kg? To?Finish?the?Year 02/17/2023 1 21 Curative?(adjuvant) HISTORY OF PRESENT ILLNESS: Dominga Garcia is a 49-year-old SPA speaking female without any significant past medical history has the following oncology history. September 2021: Ms. Garcia started feeling a lump in the right breast as well as in the right breast. 11/14/2021: Right breast diagnostic mammogram and ultrasound? 01/16/2022: Ultrasound-guided right breast biopsy? 02/18/2022: BRCA1 and BRCA2 analysis?negative 02/27/2022: MRI of the brain with and without contrast? 04/09/2022: PET/CT scan? 03/21/2022?07/11/2022: Patient was treated with 6 cycles of neoadjuvant TCH chemotherapy. 08/28/2022: MRI of the breast? 09/20/2022: Ms. Garcia had right breast lumpectomy and sentinel lymph node biopsy. 11/13/2022 - 01/07/2023: Ms. Garcia had 6300 cGy radiation therapy to the right breast, regional node sites including right supra clavicle as well as right apex region of the lung. 01/29/2023: Echocardiogram?LVEF 55-60%. 02/05/2023: CT scan of the chest and abdomen with IV contrast? OTHER MEDICAL HISTORY/CONDITIONS: Right?breast?cancer?-?2021 Cholecystectomy - 13 yrs ago Tubal ligation - 13 yrs ago FAMILY HISTORY: Cancer History:?Mat cousins x 2 - breast - dx age 32 and 52 SOCIAL HISTORY: Occupational?History:?[employer] Education?Level:?Completed High School Marital?Status:? 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 letrozole - 2.5 mg 1 tab Daily Medications Last Reconciled by Tanisha Raya MA on 08/16/2024 (Reconcile on Approval: ?) ALLERGIES: No Known Drug Allergies REVIEW OF SYSTEMS: A complete 14-point review of systems was performed and is negative except as noted in interval history. PHYSICAL EXAMINATION: VITAL SIGNS: Temperature?98.9, B/P?134/87, Oxygen?Saturation?97% PAIN: 6 - Severe pain ECOG Performance Status: None EYE: Conjunctivae is white MOUTH: Oral cavity is dry. No masses palpable in the right breast CHEST: Clear to auscultation. No wheezes or rales audible. No masses palpable CARDIAC: Rhythm regular, no murmurs or gallops present. ABDOMEN: Soft. No hepatomegaly. No splenomegaly. EXTREMITIES: No pedal edema or cyanosis. Physical Examination Abdomen: Pain noted under the left ribs. No hepatomegaly appreciated on palpation. Musculoskeletal: Pain reported in bones and joints. Laboratory, Imaging, and Diagnostic Test Results - Liver enzymes: - Elevated since November 2023 - Current results: Significantly higher than previous - Last imaging scan (November 2023): Negative LABORATORY DATA: I have personally reviewed and interpreted each of the patient?s relevant lab tests, abnormal findings are below: Date 08/03/24 09/08/24 ??WHITE?BLOOD?COUNT?(Thou/mm3) 5.1 4.6 ??RED?BLOOD?COUNT?(Miln/mm3) 4.27 4.25 ??HEMOGLOBIN?(gm/dl) 13.9 13.5 ??HEMATOCRIT?(%) 38.9 39.1 ??PLATELET?COUNT?(Thou/mm3) 277 253 ??NEUTROPHILS?%,?AUTO?(%) 66 55 ??LYMPH?%,?AUTO?(%) 24 33 ??NEUTROPHILS,?AUTO?(Thou/mm3) 3.4 2.5 ??GLUCOSE,RANDOM?(mg/dL) 143?H 134?H ??BLOOD?UREA?NITROGEN?(mg/dL) 12 14 ??CREATININE?(mg/dL) 1.00 0.80 ??SODIUM?(mmol/L) 143 140 ??POTASSIUM?(mmol/L) 3.4 3.9 ??CHLORIDE?(mmol/L) 106 109?H ??CrCl?(CandG)?(ml/min) 75.52 94.40 ??AST/SGOT?(Unit/L) 164?H 178?H ??ALT/SGPT?(Unit/L) 256?H 265?H ??ALKALINE?PHOSPHATASE?(Unit/L) 107 100 ??BILIRUBIN,?TOTAL?(mg/dL) 0.7 1.1 ??PROTEIN?TOTAL?(gm/dl) 6.8 7.3 ??ALBUMIN,?SERUM?(gm/dl) 4.3 4.5 ??GLOBULIN?(gm/dl) 2.5 2.8 ??ALBUMIN/GLOBULIN?RATIO 1.7 1.6 ??CALCIUM,?SERUM?(mg/dL) 9.4 9.6 ??CALCIUM?SERUM?(CORRECTED)?(mg/dL) 9.4 9.6 ASSESSMENT/PLAN: Assessment and Plan: Jaya Galicia presents with stomach pain, inflammation, elevated liver enzymes, fatigue, bone aches, and skin discoloration following chemotherapy. Elevated liver enzymes Assessment: Patient's liver enzymes remain elevated despite discontinuation of all medications. Previous blood work from August 03 showed persistently high levels. No evidence of cancer in the body or liver. A hepatitis panel, diabetes tests, and alpha-fetoprotein were performed in February. Further evaluation by a liver specialist is warranted. Plan: - Refer to liver specialist for evaluation and fibroscan - Order repeat liver function tests - Discontinue milk and milk products Suspected diabetes mellitus Assessment: Patient reports consistently high blood sugar levels, suggesting possible diabetes. Previous labs did not include diabetes tests. Further evaluation is necessary to confirm the diagnosis. Plan: - Order glycosylated hemoglobin A1c test - Refer to primary care physician for comprehensive diabetes workup Breast cancer follow-up Assessment: No current evidence of cancer. Patient was previously on hormonal therapy, which was discontinued due to elevated liver enzymes. Plan: -Continue letrozole Skin discoloration Assessment: Patient reports skin discoloration since chemotherapy. Possible melasma, which may be exacerbated by iron deficiency. Previous iron levels were low. Plan: - Refer to trauma doctor. Patient is yet to see the trauma doctor - Prescribe hydrocodone cream for nighttime application (use [employer] coupon for discount) - Recommend daily sunscreen use Fatigue and bone aches Assessment: Patient reports fatigue and bone aches. These symptoms may be related to underlying conditions such as potential diabetes or iron deficiency. Plan: - Address through management of other identified issues (diabetes workup, iron level check) ORDERS: Order # Description [id number] Iron Panel + Ferritin + Vitamin B-12 + Folic Acid; Serum [id number] Comprehensive Metabolic Panel - 12 + CBC with Auto Diff [id number] 3D Mammogram Screening + Bilateral [id number] MD Follow Up 6 Month [id number] RETURN TO CLINIC: I reviewed the diagnosis, prognosis, and recommended treatment/procedure options with the patient (and/or their legal franchise sales representative), including the potential benefits, risks, side effects and alternative therapies. We also discussed the option of no treatment and the possibility of clinical trial participation, if applicable. All questions were addressed, and they demonstrated understanding. They provided informed consent to proceed with the proposed plan of care. BILLING AND COMPLIANCE: I reviewed external records from providers outside my specialty as summarized above. I spent a total of 50 minutes on this patient?s care on the day of their visit excluding time spent related to any billed procedures. This time includes time spent with the patient as well as time spent documenting in the medical record, reviewing patients records and tests, obtaining history, placing orders, communicating with other healthcare professionals, counseling the patient, family or caregiver, and/or care coordination for the diagnoses above. Electronically Signed by: {Object.Sanct_ID*PnP.NameFL@}, {Object.Sanct_ID*PnP.Suffix@U} D: {Object.Sanct_Date} T: {Object.Sanct_Time} CC: PCP: Aleta Gtzc Service AdvisorMellisa Referring: Aleta Rhc Service Advisor, Mellisa Silva This document was completed utilizing speech recognition software. Grammatical errors, random word insertions, pronoun errors, and incomplete sentences are an occasional consequence of this system due to software limitations, ambient noise, and hardware issues. Any formal questions or concerns about the content, text or information contained within the body of this dictation should be directly addressed to the provider for clarification.
== END 2024-10-10 23:59 | disposition home or self-care (01) ==
LOC: SCTC 15:14
PROVIDERS: PCP Nurse Practitioner Family; Referring Provider Nurse Practitioner Family; Visit Provider Internal Medicine Hematology & Oncology
DX: C50.511 Malignant neoplasm of lower-outer quadrant of right female breast (principal); Z17.0 Estrogen receptor positive status [ER+]; Z17.22 Progesterone receptor negative status; Z17.31 Human epidermal growth factor receptor 2 positive status; R74.8 Abnormal levels of other serum enzymes; R73.9 Hyperglycemia, unspecified; Z79.811 Long term (current) use of aromatase inhibitors; R23.8 Other skin changes; R53.83 Other fatigue
CPT/HCPCS: 99213; G0463

== ENCOUNTER → 2024-10-29 | Outpatient (BNVA) | payer MEDICAID, SELFPAY | END | disposition home or self-care (01) | PROVIDERS: PCP Nurse Practitioner Family; Referring Provider Nurse Practitioner Family; Visit Provider Nurse Practitioner Family | DX: Z71.2 Person consulting for explanation of examination or test findings (principal); R73.03 Prediabetes; E55.9 Vitamin D deficiency, unspecified; R94.5 Abnormal results of liver function studies | CPT/HCPCS: 99212; G0463 ==

== ENCOUNTER → 2024-12-01 | Outpatient (CLI) | payer MEDICAID, SELFPAY ==
--- NOTE | 2024-12-01 09:30 | XR_ITS ---
Examination: Abdomen sonogram, complete Date and time of exam: December 01, 2024, 10:17 a.m. INDICATIONS: Elevated liver function test and laboratory examination performed 3 months ago, cholecystectomy history. Technique: Multiple real-time grayscale transabdominal sonographic images of the abdomen have been obtained. Findings: Absent gallbladder Normal common bile duct 0.4 cm Pancreatic head 3.0 cm Aorta not enlarged. Liver 15.2 cm fatty infiltration no liver lesions Normal hepatopetal portal venous flow Patent IVC Right kidney 10.2 cm renal cortex 2.1 cm Left kidney 11.8 cm renal cortex 2.6 cm Mild renal scarring Spleen 10.7 cm IMPRESSION: Absent gallbladder Normal common bile duct Liver normal size fatty infiltration no focal liver lesions
== END | disposition home or self-care (01) ==
LOC: CDIM 09:46
PROVIDERS: PCP Nurse Practitioner Family; Referring Provider Nurse Practitioner Family; Visit Provider Nurse Practitioner Family
DX: K76.0 Fatty (change of) liver, not elsewhere classified (principal); Z90.49 Acquired absence of other specified parts of digestive tract
CPT/HCPCS: 76700

== ENCOUNTER → 2024-12-10 | Outpatient (BNVA) | payer MEDICAID, SELFPAY | END | disposition home or self-care (01) | PROVIDERS: PCP Nurse Practitioner Family; Referring Provider Nurse Practitioner Family; Visit Provider Nurse Practitioner Family | DX: N64.4 Mastodynia (principal) | CPT/HCPCS: 99214 ==

== ENCOUNTER → 2024-12-14 | Outpatient (BNVA) | payer MEDICAID, SELFPAY | END | disposition home or self-care (01) | PROVIDERS: PCP Nurse Practitioner Family; Referring Provider Nurse Practitioner Family; Visit Provider Nurse Practitioner Family | DX: Z71.2 Person consulting for explanation of examination or test findings (principal); K76.0 Fatty (change of) liver, not elsewhere classified | CPT/HCPCS: 99213 ==